=== PATIENT | male | born 1960 | race African-American/Black ===

== ENCOUNTER 2017-05-27 10:56 | Inpatient (IN) | payer OTHER ==
[2017-05-27 11:48] VITALS: BMI 25.2
--- NOTE | 2017-05-27 14:20 | HP ---
Admission ROS [facility] - [facility] Chief Complaint: I am here for rehab after detox at [facility]. Allergies/Adverse Reactions: Allergies Allergy/AdvReac Type Severity Reaction Status Date / Time No Known Allergies Allergy Verified 05/27/17 13:53 History of Present Illness: pt is a 57 yr old male with a history of alcohol dependence seeking rehab after detox at [facility] detox for 4 days. Exam Limitations: No Limitations - Ebola screening Have you traveled outside of the country in the last 21 days: No Have you had contact with anyone from an Ebola affected area: No Have you been sick,other than usual withdrawal symptoms: No Do you have a fever: No - Review of Systems Constitutional: No Symptoms Reported EENT: reports: No Symptoms Reported Respiratory: reports: Cough Cardiac: reports: No Symptoms Reported GI: reports: No Symptoms Reported : reports: Frequency Musculoskeletal: reports: Back Pain Integumentary: reports: No Symptoms Reported Neuro: reports: Headache, Tremors Endocrine: reports: Excessive Sweating, Flushing, Intolerance to Cold, Intolerance to Heat Hematology: reports: No Symptoms Reported Psychiatric: reports: Judgement Intact, Mood/Affect Appropiate, Orientated x3 Other Systems: Reviewed and Negative Patient History - Patient Medical History Hx Anemia: No Hx Asthma: No Hx Chronic Obstructive Pulmonary Disease (COPD): No Hx Cancer: No Hx Cardiac Disorders: No Hx Congestive Heart Failure: No Hx Hypertension: No Hx Hypercholesterolemia: No Hx Pacemaker: No HX Cerebrovascular Accident: No Hx Seizures: No Hx Dementia: No Hx Diabetes: No Hx Gastrointestinal Disorders: No Hx Liver Disease: No Hx Genitourinary Disorders: No Hx Sexually Transmitted Disorders: No Hx Renal Disease (ESRD): No Hx Thyroid Disease: No Hx Human Immunodeficiency Virus (HIV): No (negative) Hx Hepatitis C: No Hx Depression: Yes Hx Suicide Attempt: No (denies) Hx Bipolar Disorder: No Hx Schizophrenia: No - Patient Surgical History Past Surgical History: Yes Hx Neurologic Surgery: No Hx Cataract Extraction: No Hx Cardiac Surgery: No Hx Lung Surgery: No Hx Breast Surgery: No Hx Breast Biopsy: No Hx Abdominal Surgery: No Hx Appendectomy: No Hx Cholecystectomy: No Hx Genitourinary Surgery: No Hx Section: No Hx Orthopedic Surgery: No Other Surgical History: removal of benign cyst right upper back in 1999 Anesthesia Reaction: No - PPD History Previous Implant?: Yes Documented Results: Positive w/o proof Implanted On Prior [facility] Admission?: No PPD to be Administered?: No - Reproductive History Patient is a Female of Child Bearing Age (11 -55 yrs old): No - Smoking Cessation Smoking history: Current every day smoker Have you smoked in the past 12 months: Yes Aproximately how many cigarettes per day: 20 Hx Chewing Tobacco Use: No Initiated information on smoking cessation: Yes 'Breaking Loose' booklet given: 05/27/17 - Substance & Tx. History Hx Alcohol Use: Yes Hx Substance Use: Yes Substance Use Type: Alcohol, Cocaine Hx Substance Use Treatment: Yes (last detox 05/2017 at [facility]) - Substances Abused Crack Route: Smoking Frequency: Daily Amount used: $100 Age of first use: 22 Date of Last Use: 05/23/17 Alcohol-vodka/beer Route: Oral Frequency: Daily Amount used: 4-5 pts./1-6 pk. Age of first use: 13 Date of Last Use: 05/23/17 Family Disease History - Family Disease History Family Disease History: Diabetes: Grandparent, Mother, Other: Father () Admission Physical Exam [facility] - Vital Signs Vital Signs: Vital Signs - 24 hr 05/27/17 11:46 Temperature 96.6 F L Pulse Rate 84 Respiratory 19 Rate Blood Pressure 136/73 - Physical General Appearance: Yes: Appropriately Dressed, Mild Distress, Anxious HEENTM: Yes: Hearing grossly Normal, Normal Voice Respiratory: Yes: Chest Non-Tender, Lungs Clear, Normal Breath Sounds, No Respiratory Distress Neck: Yes: No masses,lesions,Nodules Breast: Yes: Within Normal Limits, Axillae without masses Cardiology: Yes: Regular Rhythm, Regular Rate, S1, S2 Abdominal: Yes: Normal Bowel Sounds, Non Tender, Soft Genitourinary: Yes: Within Normal Limits Back: Yes: Normal Inspection Musculoskeletal: Yes: full range of Motion Extremities: Yes: Normal Capillary Refill, Normal Inspection, Tremors Neurological: Yes: Fully Oriented, Alert, Normal Response Integumentary: Yes: Normal Color Lymphatic: Yes: Within Normal Limits - Diagnostic (1) Alcohol dependence in early, early partial, sustained full, or sustained partial remission Current Visit: Yes Status: Chronic (2) Nicotine dependence Current Visit: Yes Status: Chronic Qualifiers: Nicotine product type: cigarettes Substance use status: uncomplicated Qualified Code(s): F17.210 - Nicotine dependence, cigarettes, uncomplicated Cleared for Admission [facility] - Detox or Rehab [facility] Level of Care: Medically Managed Claeared for Rehab Admission: Yes [facility] Breath Alcohol Content Breath Alcohol Content: 0 Urine Drug Screen - Results Drug Screen Negative: No Urine Drug Screen Results: JÚNIOR-Cocaine, BZO-Benzodiazepines, TCA-Tricyclic Antidepress Inpatient Rehab Admission - Initial Determination Free of communicable disease: Yes - Rehab Admission Criteria Comorbidities: Yes Patient is meeting Inpatient Rehab admission criteria:: Yes
[2017-05-27] MEDS ORDERED: ACETAMINOPHEN 325 MG TABLET (FP) PO PRN (14:31)
[2017-05-27] MEDS ORDERED: MENTHOL/PHENOL 1 EACH UD MM PRN (14:31)
[2017-05-27] MEDS ORDERED: NICOTINE POLACRILEX 4 MG GUM BC PRN (14:31)
[2017-05-27] MEDS ORDERED: P-EPHED 60MG/TRIPROLIDI 2.5MG TABLET PO PRN (14:31)
[2017-05-27] MEDS ORDERED: IBUPROFEN 400 MG TABLET (FP) PO PRN (14:31)
[2017-05-27] MEDS ORDERED: LOPERAMIDE HCL 2 MG CAPSULE PO PRN (14:31)
[2017-05-27] MEDS ORDERED: MAGNESIUM HYDROX 2400MG/30ML ORAL SUSPENSION 30 ML CUP PO PRN (14:31)
[2017-05-27] MEDS ORDERED: MAGNESIUM CITRATE 300 ML BOTTLE PO PRN (14:31)
--- NOTE | 2017-05-27 15:33 | HP ---
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 Medical History: removal of benign cyst right upper back in 1999, smokes cigarettes 1 PPD. Psychiatric History: patient reports no history of psychiatric treatment, however reports has been feeling very depressed and anxious, "short of temper", low energy and lost interest. Physical/Sexual Abuse/Trauma History: Denies history of sexual, physical and verbla abuse, no h/o service. Additional Comment: longest period of abstinence 8.5 years "was incarcerated". Vital Signs: Vital Signs - 24 hr 05/27/17 11:46 Temperature 96.6 F L Pulse Rate 84 Respiratory 19 Rate Blood Pressure 136/73 Allergies/Adverse Reactions: Allergies Allergy/AdvReac Type Severity Reaction Status Date / Time No Known Allergies Allergy Verified 05/27/17 13:53 Date of last physical exam: 05/27/17 Concur with the findings of this exam: Yes - Substance Abuse/Tx History Hx Alcohol Use: Yes Hx Substance Use: Yes Substance Use Type: Alcohol (vodka 4-5 pints, beer 1-6 ), Cocaine ($100 daily ) Hx Substance Use Treatment: Yes ([facility] program) Mental Status Exam - Mental Status Exam Alert and Oriented to: Time, Place, Person Cognitive Function: Grossly Intact Patient Appearance: Well Groomed Mood: Depressed, Anxious Affect: Appropriate, Mood Congruent Patient Behavior: Appropriate, Cooperative Speech Pattern: Clear, Appropriate Voice Loudness: Normal Thought Process: Intact Thought Disorder: Not Present (reports under the drugs sometimes feels paranoid) Hallucinations: Denies Suicidal Ideation: Denies Homicidal Ideation: Denies Insight/Judgement: Fair Sleep: Fair Appetite: Fair Muscle strength/Tone: Normal Gait/Station: Normal Psychiatric Findings - Problem List ([place] 1, 2,3) (1) Alcohol dependence Current Visit: Yes Status: Acute (2) Cocaine dependence Current Visit: Yes Status: Acute (3) Substance induced mood disorder Current Visit: Yes Status: Acute (4) Nicotine dependence Current Visit: Yes Status: Chronic Qualifiers: Nicotine product type: cigarettes Substance use status: uncomplicated Qualified Code(s): F17.210 - Nicotine dependence, cigarettes, uncomplicated - Initial Treatment Plan Initial Treatment Plan: Psychoeducation regarding Lexapro(side-effects/benefits) , patient agreed to start treatment , will add Lexapro 10 mg po daily, monitor progress as needed.
[2017-05-27 19:03] LABS: URINE APPEARANCE CLEAR; URINE BILIRUBIN NEGATIVE (NEGATIVE); URINE BLOOD NEGATIVE (NEGATIVE); URINE COLOR LTYELLOW; URINE GLUCOSE (UA) NEGATIVE (NEGATIVE); URINE KETONE NEGATIVE (NEGATIVE); URINE LEUK ESTERASE NEGATIVE (NEGATIVE); URINE NITRITE NEGATIVE (NEGATIVE); URINE PROTEIN NEGATIVE (NEGATIVE); URINE UROBILINOGEN NEGATIVE mg/dL (0.2-1.0)
[2017-05-27] MEDS: THIAMINE HCL 100 MG TABLET (FP) PO SCH (21:27)
[2017-05-27] MEDS: TOLNAFTATE 1% CREAM 15 GM TUBE TP SCH (21:27)
[2017-05-28] MEDS: MAG HYDROX/AL HYDROX/SIMETH 30 ML UNIT-DOSE CUP PO PRN (06:45)
[2017-05-28 10:13] LABS: HEMATOCRIT 43.1 % (35.4-49); HEMOGLOBIN 13.5 GM/dL (11.7-16.9); MCHC 31.4 g/dl (32.0-35.9); MEAN CELL VOLUME 89.2 fl (80-96); PLATELET COUNT 187 K/MM3 (134-434); RBC 4.83 M/mm3 (4.00-5.60); RDW 13.4 % (11.9-15.9); WHITE BLOOD COUNT 5.5 K/mm3 (4.0-10.0)
[2017-05-28 10:24] LABS: ALBUMIN 3.2 g/dl (3.4-5.0); ALK PHOS 121 U/L (45-117); ANION GAP 9 (8-16); BLOOD UREA NITROGEN 14 mg/dL (7-18); CALCIUM 8.2 mg/dL (8.5-10.1); CHLORIDE 109 mmol/L (98-107); CO2 25 mmol/L (21-32); GLUCOSE,RANDOM 93 mg/dL (74-106); POTASSIUM 4.1 mmol/L (3.5-5.1); SGOT/AST 70 U/L (15-37); SGPT/ALT 75 U/L (12-78); SODIUM 143 mmol/L (136-145)
[2017-05-28] MEDS: TOLNAFTATE 1% CREAM 15 GM TUBE TP SCH ×2 (10:31→21:25)
[2017-05-28] MEDS: PRENATAL VITAMINS W/ FOLIC ACID TABLET (FP) PO SCH (10:31)
[2017-05-28] MEDS: hydrOXYzine PAMOATE 50 MG CAPSULE (FP) PO PRN ×2 (10:31→21:26)
[2017-05-28 10:35] LABS: BILIRUBIN,TOTAL < 0.1 mg/dL (0.2-1.0)
[2017-05-28] MEDS: ESCITALOPRAM OXALATE 10 MG TABLET (FP) PO SCH (14:37)
[2017-05-28] MEDS: THIAMINE HCL 100 MG TABLET (FP) PO SCH (21:24)
[2017-05-29] MEDS: ESCITALOPRAM OXALATE 10 MG TABLET (FP) PO SCH (09:56)
[2017-05-29] MEDS: PRENATAL VITAMINS W/ FOLIC ACID TABLET (FP) PO SCH (09:56)
[2017-05-29] MEDS: TOLNAFTATE 1% CREAM 15 GM TUBE TP SCH ×2 (09:56→21:27)
--- NOTE | 2017-05-29 17:16 | EKG ---
Test Reason : Blood Pressure : / mmHG Vent. Rate : 093 BPM Atrial Rate : 093 BPM P-R Int : 140 ms QRS Dur : 094 ms QT Int : 350 ms P-R-T Axes : 070 079 061 degrees QTc Int : 435 ms NORMAL SINUS RHYTHM MINIMAL VOLTAGE CRITERIA FOR LVH, MAY BE NORMAL VARIANT BORDERLINE ECG NO PREVIOUS ECGS AVAILABLE Confirmed by MG LA MD ([id number]) on 05/29/2017 5:15:53 PM Referred By: Confirmed By:MG LA MD
[2017-05-29] MEDS: THIAMINE HCL 100 MG TABLET (FP) PO SCH (21:27)
[2017-05-29] MEDS: hydrOXYzine PAMOATE 50 MG CAPSULE (FP) PO PRN (21:27)
[2017-05-30] MEDS: MAG HYDROX/AL HYDROX/SIMETH 30 ML UNIT-DOSE CUP PO PRN (03:54)
[2017-05-30] MEDS: PRENATAL VITAMINS W/ FOLIC ACID TABLET (FP) PO SCH (10:23)
[2017-05-30] MEDS: TOLNAFTATE 1% CREAM 15 GM TUBE TP SCH ×2 (10:23→21:35)
[2017-05-30] MEDS: ESCITALOPRAM OXALATE 10 MG TABLET (FP) PO SCH (10:23)
[2017-05-30] MEDS: THIAMINE HCL 100 MG TABLET (FP) PO SCH (21:33)
[2017-05-30] MEDS: hydrOXYzine PAMOATE 50 MG CAPSULE (FP) PO PRN (21:34)
[2017-05-31] MEDS: PRENATAL VITAMINS W/ FOLIC ACID TABLET (FP) PO SCH (10:12)
[2017-05-31] MEDS: TOLNAFTATE 1% CREAM 15 GM TUBE TP SCH ×2 (10:12→21:41)
[2017-05-31] MEDS: ESCITALOPRAM OXALATE 10 MG TABLET (FP) PO SCH (10:12)
[2017-05-31] MEDS: THIAMINE HCL 100 MG TABLET (FP) PO SCH (21:41)
[2017-05-31] MEDS: hydrOXYzine PAMOATE 50 MG CAPSULE (FP) PO PRN (21:41)
[2017-06-01] MEDS: TOLNAFTATE 1% CREAM 15 GM TUBE TP SCH ×2 (10:17→21:31)
[2017-06-01] MEDS: PRENATAL VITAMINS W/ FOLIC ACID TABLET (FP) PO SCH (10:17)
[2017-06-01] MEDS: ESCITALOPRAM OXALATE 10 MG TABLET (FP) PO SCH (10:17)
[2017-06-01] MEDS: hydrOXYzine PAMOATE 50 MG CAPSULE (FP) PO PRN (21:31)
[2017-06-01] MEDS: THIAMINE HCL 100 MG TABLET (FP) PO SCH (21:31)
[2017-06-02] MEDS: TOLNAFTATE 1% CREAM 15 GM TUBE TP SCH ×2 (10:59→21:30)
[2017-06-02] MEDS: PRENATAL VITAMINS W/ FOLIC ACID TABLET (FP) PO SCH (10:59)
[2017-06-02] MEDS: ESCITALOPRAM OXALATE 10 MG TABLET (FP) PO SCH (10:59)
[2017-06-02] MEDS: hydrOXYzine PAMOATE 50 MG CAPSULE (FP) PO PRN (21:29)
[2017-06-02] MEDS: THIAMINE HCL 100 MG TABLET (FP) PO SCH (21:30)
[2017-06-02] MEDS: guaiFENesin/D-METHORPHAN HB 10 ML UNIT-DOSE CUPS PO PRN (21:31)
[2017-06-03] MEDS: PRENATAL VITAMINS W/ FOLIC ACID TABLET (FP) PO SCH (10:05)
[2017-06-03] MEDS: ESCITALOPRAM OXALATE 10 MG TABLET (FP) PO SCH (10:05)
[2017-06-03] MEDS: TOLNAFTATE 1% CREAM 15 GM TUBE TP SCH ×2 (10:06→21:24)
[2017-06-03] MEDS: guaiFENesin/D-METHORPHAN HB 10 ML UNIT-DOSE CUPS PO PRN ×2 (14:22→21:25)
[2017-06-03] MEDS: hydrOXYzine PAMOATE 50 MG CAPSULE (FP) PO PRN (21:24)
[2017-06-03] MEDS: THIAMINE HCL 100 MG TABLET (FP) PO SCH (21:24)
[2017-06-04] MEDS ORDERED: COLLOIDAL OATMEAL 1 BAR EACH TP PRN (07:07)
[2017-06-04] MEDS: PRENATAL VITAMINS W/ FOLIC ACID TABLET (FP) PO SCH (10:04)
[2017-06-04] MEDS: ESCITALOPRAM OXALATE 10 MG TABLET (FP) PO SCH (10:04)
[2017-06-04] MEDS: TOLNAFTATE 1% CREAM 15 GM TUBE TP SCH ×2 (10:05→21:28)
[2017-06-04] MEDS: guaiFENesin/D-METHORPHAN HB 10 ML UNIT-DOSE CUPS PO PRN (10:06)
[2017-06-04] MEDS: THIAMINE HCL 100 MG TABLET (FP) PO SCH (21:27)
[2017-06-04] MEDS: hydrOXYzine PAMOATE 50 MG CAPSULE (FP) PO PRN (21:27)
[2017-06-05] MEDS: PRENATAL VITAMINS W/ FOLIC ACID TABLET (FP) PO SCH (09:42)
[2017-06-05] MEDS: ESCITALOPRAM OXALATE 10 MG TABLET (FP) PO SCH (09:42)
[2017-06-05] MEDS: TOLNAFTATE 1% CREAM 15 GM TUBE TP SCH ×2 (09:43→21:36)
[2017-06-05] MEDS: hydrOXYzine PAMOATE 50 MG CAPSULE (FP) PO PRN (21:35)
[2017-06-05] MEDS: THIAMINE HCL 100 MG TABLET (FP) PO SCH (21:35)
[2017-06-06] MEDS: ESCITALOPRAM OXALATE 10 MG TABLET (FP) PO SCH (09:52)
[2017-06-06] MEDS: PRENATAL VITAMINS W/ FOLIC ACID TABLET (FP) PO SCH (09:52)
[2017-06-06] MEDS: TOLNAFTATE 1% CREAM 15 GM TUBE TP SCH ×2 (09:53→21:27)
[2017-06-06] MEDS: hydrOXYzine PAMOATE 50 MG CAPSULE (FP) PO PRN (21:26)
[2017-06-06] MEDS: THIAMINE HCL 100 MG TABLET (FP) PO SCH (21:26)
[2017-06-07] MEDS: PRENATAL VITAMINS W/ FOLIC ACID TABLET (FP) PO SCH (10:05)
[2017-06-07] MEDS: ESCITALOPRAM OXALATE 10 MG TABLET (FP) PO SCH (10:05)
[2017-06-07] MEDS: TOLNAFTATE 1% CREAM 15 GM TUBE TP SCH ×2 (10:06→21:41)
--- NOTE | 2017-06-07 10:40 | PN ---
S Progress Note (SOAP) Subjective: Patient c/o facial rash and bleeding gum. As per patient, the facial rash almost gone after using aveeno soap but his gum started bleeding whenever he brushes his teeth. He denies using hard toothbrush. Last dental exam 11/2 year ago. Objective: 06/07/17 10:36 Last Vital Signs Temp Pulse Resp BP Pulse Ox 98.1 F 74 18 122/85 06/07/17 06:46 06/07/17 06:46 06/07/17 06:46 06/07/17 06:46 PE: Mouth: no bleeding gum noted Laboratory Tests 05/27/17 05/28/17 05/28/17 15:00 07:50 07:50 WBC 5.5 RBC 4.83 Hgb 13.5 Hct 43.1 MCV 89.2 MCH 28.0 MCHC 31.4 L RDW 13.4 Plt Count 187 MPV 8.0 Sodium Potassium Chloride Carbon Dioxide Anion Gap BUN Creatinine Creat Clearance w eGFR Random Glucose Calcium Total Bilirubin AST ALT Alkaline Phosphatase Total Protein Albumin Urine Color Ltyellow Urine Appearance Clear Urine pH 7.0 Ur Specific [place] 1.012 Urine Protein Negative Urine Glucose (UA) Negative Urine Ketones Negative Urine Blood Negative Urine Nitrite Negative Urine Bilirubin Negative Urine Urobilinogen Negative Ur Leukocyte Esterase Negative RPR Titer HIV 1&2 Antibody Screen Negative HIV P24 Antigen Negative 05/28/17 05/28/17 07:50 07:50 WBC RBC Hgb Hct MCV MCH MCHC RDW Plt Count MPV Sodium 143 Potassium 4.1 Chloride 109 H Carbon Dioxide 25 Anion Gap 9 BUN 14 Creatinine 1.0 Creat Clearance w eGFR > 60 Random Glucose 93 Calcium 8.2 L Total Bilirubin < 0.1 L AST 70 H ALT 75 Alkaline Phosphatase 121 H Total Protein 6.0 L Albumin 3.2 L Urine Color Urine Appearance Urine pH Ur Specific [place] Urine Protein Urine Glucose (UA) Urine Ketones Urine Blood Urine Nitrite Urine Bilirubin Urine Urobilinogen Ur Leukocyte Esterase RPR Titer Nonreactive HIV 1&2 Antibody Screen HIV P24 Antigen Labs noted Assessment: 06/07/17 10:37 Patient c/o bleeding gum Plan: Bleeding gum: peridex rinse, follow up with your dentist post discharge
[2017-06-07] MEDS: CHLORHEXIDINE GLUCONATE 0.12% 15ML CUP MM SCH ×2 (10:43→21:41)
[2017-06-07] MEDS: hydrOXYzine PAMOATE 50 MG CAPSULE (FP) PO PRN (21:41)
[2017-06-07] MEDS: THIAMINE HCL 100 MG TABLET (FP) PO SCH (21:41)
[2017-06-08] MEDS: PRENATAL VITAMINS W/ FOLIC ACID TABLET (FP) PO SCH (09:43)
[2017-06-08] MEDS: TOLNAFTATE 1% CREAM 15 GM TUBE TP SCH ×2 (09:44→21:34)
[2017-06-08] MEDS: ESCITALOPRAM OXALATE 10 MG TABLET (FP) PO SCH (09:44)
[2017-06-08] MEDS: CHLORHEXIDINE GLUCONATE 0.12% 15ML CUP MM SCH ×2 (09:45→21:36)
--- NOTE | 2017-06-08 13:34 | EKG ---
Test Reason : Blood Pressure : / mmHG Vent. Rate : 095 BPM Atrial Rate : 095 BPM P-R Int : 142 ms QRS Dur : 100 ms QT Int : 336 ms P-R-T Axes : 071 079 062 degrees QTc Int : 422 ms NORMAL SINUS RHYTHM VOLTAGE CRITERIA FOR LEFT VENTRICULAR HYPERTROPHY ABNORMAL ECG WHEN COMPARED WITH ECG OF 27-MAY-2017 16:55, NO SIGNIFICANT CHANGE WAS FOUND Confirmed by MG LA MD ([id number]) on 06/08/2017 1:33:37 PM Referred By: Confirmed By:MG LA MD
[2017-06-08] MEDS: THIAMINE HCL 100 MG TABLET (FP) PO SCH (21:33)
[2017-06-08] MEDS: hydrOXYzine PAMOATE 50 MG CAPSULE (FP) PO PRN (21:33)
[2017-06-09] MEDS: ESCITALOPRAM OXALATE 10 MG TABLET (FP) PO SCH (09:50)
[2017-06-09] MEDS: TOLNAFTATE 1% CREAM 15 GM TUBE TP SCH ×2 (09:50→22:36)
[2017-06-09] MEDS: PRENATAL VITAMINS W/ FOLIC ACID TABLET (FP) PO SCH (09:50)
[2017-06-09] MEDS: CHLORHEXIDINE GLUCONATE 0.12% 15ML CUP MM SCH ×2 (09:51→22:36)
[2017-06-09] MEDS: THIAMINE HCL 100 MG TABLET (FP) PO SCH (21:41)
[2017-06-10 07:12] VITALS: BP 138/86; PULSE 76; TEMP 98.2
[2017-06-10] MEDS: PRENATAL VITAMINS W/ FOLIC ACID TABLET (FP) PO SCH (09:50)
[2017-06-10] MEDS: ESCITALOPRAM OXALATE 10 MG TABLET (FP) PO SCH (09:50)
[2017-06-10] MEDS: CHLORHEXIDINE GLUCONATE 0.12% 15ML CUP MM SCH (09:51)
[2017-06-10] MEDS: TOLNAFTATE 1% CREAM 15 GM TUBE TP SCH (09:51)
--- NOTE | 2017-06-10 10:16 | PN ---
Psychiatric Progress Note Vital Signs: Vital Signs Period Temp Pulse Resp BP Sys/Jara Pulse Ox Last 24 Hr 98.2 F 76 17-18 138/86 Date of Session: 06/10/17 Chief Complaint:: discharge visit HPI: Patient has addressed alcohol, cocaine, nicotine dependence comorbid substance induced mood disorder. ROS: WNL Current Medications: Active Medications Generic Name Dose Route Start Last Admin Trade Name Freq PRN Reason Stop Dose Admin Acetaminophen 650 mg 05/27/17 14:31 Tylenol - PO Q4H PRN PAIN Al Hydroxide/Mg Hydroxide 30 ml 05/27/17 14:31 05/30/17 03:54 Mylanta Oral Suspension - PO 30 ml Q6H PRN Administration DYSPEPSIA Chlorhexidine Gluconate 15 ml 06/07/17 10:00 06/10/17 09:51 Peridex - MM Not Given BID JONG Colloidal Oatmeal 1 applic 06/04/17 07:07 06/04/17 10:04 Aveeno Soap - TP 1 applic DAILY PRN Administration HYGEINE Escitalopram Oxalate 10 mg 05/28/17 14:15 06/10/17 09:50 Lexapro - PO 10 mg DAILY JONG Administration Eucalyptus/Menthol/Phenol/Sorbitol 1 each 05/27/17 14:31 Cepastat Lozenge - MM Q4H PRN SORE THROAT Guaifenesin 10 ml 05/27/17 14:31 06/04/17 10:06 Robitussin Dm - PO 10 ml Q6H PRN Administration COUGH Hydroxyzine Pamoate 50 mg 05/27/17 14:31 06/08/17 21:33 Vistaril - PO 50 mg Q4H PRN Administration AGITATION Ibuprofen 400 mg 05/27/17 14:31 Motrin - PO Q6H PRN SEVERE PAIN Loperamide HCl 4 mg 05/27/17 14:31 Imodium - PO Q6H PRN DIARRHEA Magnesium Citrate 300 ml 05/27/17 14:31 Citroma - PO Q48H PRN CONSTIPATION Magnesium Hydroxide 30 ml 05/27/17 14:31 Milk Of Magnesia - PO DAILY PRN CONSTIPATION Nicotine Polacrilex 4 mg 05/27/17 14:31 Nicorette Gum - BC Q2H PRN NICOTINE REPLACEMENT RX Multivit/Folic Acid/Iron 1 tab 05/28/17 10:00 06/10/17 09:50 Vitamins ([facility]) - PO 1 tab DAILY JONG Administration Pseudoephedrine/Triprolidine 1 combo 05/27/17 14:31 Actifed - PO TID PRN NASAL CONGESTION Thiamine HCl 100 mg 05/27/17 22:00 06/09/17 21:41 Vitamin B1 - PO 100 mg HS JONG Administration Tolnaftate 1 applic 05/27/17 22:00 06/10/17 09:51 Tinactin 1% Cream - TP Not Given BID JONG Current Side Effect: No Lab tests ordered: No Lab tests reviewed: Yes Provider note:: Patient has completed today his treatment and met his goals, will contineu to address his issues at [facility], [facility] and [facility] treatment program.He focused on importnace of changing attitudes and utilize supports available to prevent relapses. Patient reports feeling better since started Lexapro, medication well tolerated, scripts provided for 30 days, Total face to face time:: 25 Mental Status Exam - Mental Status Exam Alert and Oriented to: Time, Place, Person Cognitive Function: Good Patient Appearance: Well Groomed Mood: Hopeful Affect: Appropriate, Mood Congruent Patient Behavior: Appropriate, Cooperative Speech Pattern: Clear, Appropriate Voice Loudness: Normal Thought Process: Intact, Goal Oriented Thought Disorder: Not Present Hallucinations: Denies Suicidal Ideation: Denies Homicidal Ideation: Denies Insight/Judgement: Fair Sleep: Fair Appetite: Fair Muscle strength/Tone: Normal Gait/Station: Normal Psychiatric Treatment Plan - Problem List (1) Alcohol dependence Current Visit: Yes (2) Cocaine dependence Current Visit: Yes (3) Substance induced mood disorder Current Visit: Yes (4) Nicotine dependence Current Visit: Yes Qualifiers: Nicotine product type: cigarettes Substance use status: uncomplicated Qualified Code(s): F17.210 - Nicotine dependence, cigarettes, uncomplicated
== END 2017-06-10 10:40 | disposition home or self-care (01) | DRG 772 ==
LOC: YASAS 10:56 → Y5N 14:20
PROVIDERS: ADMIT Psychiatry & Neurology Psychiatry; ATTEND Psychiatry & Neurology Psychiatry
PROC: HZ42ZZZ Group Counseling for Substance Abuse Treatment, Cognitive-Behavioral (ICD-10-PCS; principal; 2017-05-27)
DX: F10.21 Alcohol dependence, in remission (principal); F14.20 Cocaine dependence, uncomplicated; F17.210 Nicotine dependence, cigarettes, uncomplicated; F19.24 Other psychoactive substance dependence with psychoactive substance-induced mood disorder; Z59.0 Homelessness
CPT/HCPCS: 36415; 71020-TC; 80053; 81003; 85027; 86593; 87389; 93005; 93010

== ENCOUNTER 2020-09-04 17:30 | Inpatient (IN) | payer OTHER ==
[2020-09-04 18:44] VITALS: BMI 25.1
[2020-09-04] MEDS ORDERED: MAG HYDROX/AL HYDROX/SIMETH 30 ML UNIT-DOSE CUP PO PRN (18:44)
[2020-09-04] MEDS ORDERED: NICOTINE POLACRILEX 2 MG GUM BUC PRN (18:44)
[2020-09-04] MEDS ORDERED: METHOCARBAMOL 500 MG TABLET PO PRN (18:44)
[2020-09-04] MEDS ORDERED: MAGNESIUM CITRATE 300 ML BOTTLE PO PRN (18:44)
[2020-09-04] MEDS ORDERED: MENTHOL/PHENOL 1 EACH UD MM PRN (18:44)
[2020-09-04] MEDS ORDERED: MAGNESIUM HYDROX 2400MG/30ML ORAL SUSPENSION 30 ML CUP PO PRN (18:44)
[2020-09-04] MEDS ORDERED: IBUPROFEN 400 MG TABLET (FP) PO PRN (18:44)
[2020-09-04] MEDS ORDERED: ONDANSETRON *ODT* 4 MG TABLET SL PRN (18:44)
[2020-09-04] MEDS ORDERED: chlordiazePOXIDE HCL 25 MG CAPSULE PO PRN (18:44)
[2020-09-04] MEDS ORDERED: ACETAMINOPHEN 325 MG TABLET (FP) PO PRN ×2 (18:44)
[2020-09-04] MEDS ORDERED: BISMUTH SUBSALICYLATE 524 MG/30 ML UD PO PRN (18:44)
[2020-09-04] MEDS: chlordiazePOXIDE HCL 25 MG CAPSULE PO SCH ×2 (19:55→22:25)
[2020-09-04] MEDS: PRENATAL VITAMINS W/ FOLIC ACID TABLET (FP) PO SCH (19:57)
[2020-09-04] MEDS: hydrOXYzine PAMOATE 25 MG CAPSULE (FP) PO SCH (22:24)
[2020-09-04] MEDS: THIAMINE HCL 100 MG TABLET (FP) PO SCH (22:24)
[2020-09-04] MEDS: MELATONIN 5 MG TABLETS PO SCH (22:24)
[2020-09-05] MEDS: hydrOXYzine PAMOATE 25 MG CAPSULE (FP) PO SCH ×5 (06:19→22:19)
[2020-09-05] MEDS: chlordiazePOXIDE HCL 25 MG CAPSULE PO SCH ×4 (06:20→22:19)
[2020-09-05] MEDS: PRENATAL VITAMINS W/ FOLIC ACID TABLET (FP) PO SCH (10:31)
[2020-09-05 10:41] LABS: HEMATOCRIT 40.4 % (35.4-49); HEMOGLOBIN 13.5 GM/dL (11.7-16.9); MCH 29.3 pg (25.7-33.7); MCHC 33.5 g/dl (32.0-35.9); MEAN CELL VOLUME 87.4 fl (80-96); MEAN PLT VOLUME 8.3 fl (7.5-11.1); PLATELET COUNT 198 K/MM3 (134-434); RBC 4.62 M/mm3 (4.00-5.60); RDW 13.7 % (11.9-15.9); WHITE BLOOD COUNT 4.5 K/mm3 (4.0-10.0)
[2020-09-05 10:42] LABS: POTASSIUM 3.8 mmol/L (3.5-5.1)
[2020-09-05 10:54] LABS: TOT PROT 5.5 g/dl (6.4-8.2)
[2020-09-05 10:56] LABS: ALBUMIN 2.9 g/dl (3.4-5.0); BILIRUBIN,TOTAL 0.2 mg/dL (0.2-1); BLOOD UREA NITROGEN 12.9 mg/dL (7-18); CALCIUM 8.7 mg/dL (8.5-10.1)
[2020-09-05 11:50] LABS: HIV INTERPRETATION NEGATIVE (NEGATIVE)
[2020-09-05] MEDS: MELATONIN 5 MG TABLETS PO SCH (22:19)
[2020-09-05] MEDS: THIAMINE HCL 100 MG TABLET (FP) PO SCH (22:19)
[2020-09-06] MEDS: chlordiazePOXIDE HCL 25 MG CAPSULE PO SCH ×4 (08:02→22:29)
[2020-09-06] MEDS: hydrOXYzine PAMOATE 25 MG CAPSULE (FP) PO SCH ×5 (08:03→22:27)
[2020-09-06] MEDS: PRENATAL VITAMINS W/ FOLIC ACID TABLET (FP) PO SCH (10:26)
[2020-09-06] MEDS: THIAMINE HCL 100 MG TABLET (FP) PO SCH (22:27)
[2020-09-06] MEDS: MELATONIN 5 MG TABLETS PO SCH (22:27)
[2020-09-07] MEDS ORDERED: chlordiazePOXIDE HCL 10 MG CAPSULE PO PRN
[2020-09-07] MEDS: hydrOXYzine PAMOATE 25 MG CAPSULE (FP) PO SCH ×5 (06:30→22:15)
[2020-09-07] MEDS: chlordiazePOXIDE HCL 10 MG CAPSULE PO SCH ×4 (06:34→22:16)
[2020-09-07 10:09] LABS: SARS-CoV-2 NAA Not Detected (Not Detected)
[2020-09-07] MEDS: PRENATAL VITAMINS W/ FOLIC ACID TABLET (FP) PO SCH (10:25)
[2020-09-07] MEDS: MELATONIN 5 MG TABLETS PO SCH (22:15)
[2020-09-07] MEDS: THIAMINE HCL 100 MG TABLET (FP) PO SCH (22:15)
[2020-09-08] MEDS: hydrOXYzine PAMOATE 25 MG CAPSULE (FP) PO SCH ×5 (05:54→21:44)
[2020-09-08] MEDS: FLUTICASONE PROP 0.05% 16 GM NASAL SPRAY NS SCH ×2 (05:54→10:25)
[2020-09-08] MEDS: chlordiazePOXIDE HCL 10 MG CAPSULE PO SCH ×2 (05:54→17:40)
[2020-09-08] MEDS: PRENATAL VITAMINS W/ FOLIC ACID TABLET (FP) PO SCH (10:25)
[2020-09-08] MEDS: COLLOIDAL OATMEAL 1 BAR EACH TP PRN (15:20)
[2020-09-08] MEDS: TOLNAFTATE 1% CREAM 15 GM TUBE TP SCH ×2 (15:21→21:44)
[2020-09-08] MEDS: MELATONIN 5 MG TABLETS PO SCH (21:44)
[2020-09-08] MEDS: THIAMINE HCL 100 MG TABLET (FP) PO SCH (21:44)
[2020-09-09] MEDS ORDERED: chlordiazePOXIDE HCL 10 MG CAPSULE PO ONE (05:00)
[2020-09-09] MEDS: hydrOXYzine PAMOATE 25 MG CAPSULE (FP) PO SCH ×2 (05:13→10:02)
[2020-09-09 09:16] VITALS: BP 146/95; PULSE 84; TEMP 97.1
[2020-09-09] MEDS: COLLOIDAL OATMEAL 1 BAR EACH TP PRN (10:02)
[2020-09-09] MEDS: PRENATAL VITAMINS W/ FOLIC ACID TABLET (FP) PO SCH (10:02)
[2020-09-09] MEDS: TOLNAFTATE 1% CREAM 15 GM TUBE TP SCH (10:03)
[2020-09-09] MEDS: FLUTICASONE PROP 0.05% 16 GM NASAL SPRAY NS SCH (10:03)
== END 2020-09-09 10:35 | disposition other institution (70) | DRG 774 ==
LOC: YASAS 17:30 → Y3N 18:51
PROVIDERS: ADMIT Allergy & Immunology; ATTEND Allergy & Immunology
PROC: HZ2ZZZZ Detoxification Services for Substance Abuse Treatment (ICD-10-PCS; principal; 2020-09-04)
DX: F10.230 Alcohol dependence with withdrawal, uncomplicated (principal); F14.20 Cocaine dependence, uncomplicated; F17.210 Nicotine dependence, cigarettes, uncomplicated; F19.24 Other psychoactive substance dependence with psychoactive substance-induced mood disorder; F41.9 Anxiety disorder, unspecified; F32.9 Major depressive disorder, single episode, unspecified; R76.11 Nonspecific reaction to tuberculin skin test without active tuberculosis; Z56.0 Unemployment, unspecified; Z59.0 Homelessness
CPT/HCPCS: 36415; 71046-TC-FY; 80053; 85027; 86780; 87389; 93005; 93010; C9803; U0003; U0005

== ENCOUNTER 2021-04-27 15:45 | Inpatient (IN) | payer OTHER ==
[2021-04-27] MEDS ORDERED: MAGNESIUM CITRATE 300 ML BOTTLE PO PRN (17:46)
[2021-04-27] MEDS ORDERED: MENTHOL/PHENOL 1 EACH UD MM PRN (17:46)
[2021-04-27] MEDS ORDERED: BISMUTH SUBSALICYLATE 524 MG/30 ML PO PRN (17:46)
[2021-04-27] MEDS ORDERED: MAGNESIUM HYDROX 2400MG/30ML ORAL SUSPENSION 30 ML CUP PO PRN (17:46)
[2021-04-27] MEDS ORDERED: IBUPROFEN 400 MG TABLET (FP) PO PRN (17:46)
[2021-04-27] MEDS ORDERED: ONDANSETRON *ODT* 4 MG TABLET SL PRN (17:46)
[2021-04-27] MEDS ORDERED: NICOTINE 10 MG CARTRIDGE (INHALER) IH PRN (17:46)
[2021-04-27] MEDS ORDERED: ACETAMINOPHEN 325 MG TABLET (FP) PO PRN ×2 (17:46)
[2021-04-27 18:48] VITALS: BMI 29.2
[2021-04-27] MEDS: PRENATAL VITAMINS W/ FOLIC ACID TABLET (FP) PO SCH (20:22)
[2021-04-27] MEDS: hydrOXYzine PAMOATE 25 MG CAPSULE (FP) PO SCH ×2 (20:22→22:59)
[2021-04-27] MEDS: MELATONIN 5 MG TABLETS PO SCH (22:59)
[2021-04-27] MEDS: THIAMINE HCL 100 MG TABLET (FP) PO SCH (22:59)
[2021-04-28] MEDS: hydrOXYzine PAMOATE 25 MG CAPSULE (FP) PO SCH ×5 (07:00→22:18)
[2021-04-28] MEDS ORDERED: diazePAM 5 MG TABLET PO PRN (10:10)
[2021-04-28] MEDS: METHOCARBAMOL 500 MG TABLET PO PRN (11:15)
[2021-04-28] MEDS: PRENATAL VITAMINS W/ FOLIC ACID TABLET (FP) PO SCH (11:15)
[2021-04-28] MEDS: diazePAM 5 MG TABLET PO SCH ×3 (11:16→22:19)
[2021-04-28 14:41] LABS: HEMATOCRIT 39.6 % (35.4-49); HEMOGLOBIN 13.1 GM/dL (11.7-16.9); MCH 28.7 pg (25.7-33.7); MCHC 33.1 g/dl (32.0-35.9); MEAN CELL VOLUME 86.9 fl (80-96); PLATELET COUNT 200 10^3/uL (134-434); RBC 4.55 M/mm3 (4.00-5.60); RDW 13.7 % (11.9-15.9); WHITE BLOOD COUNT 5.4 K/mm3 (4.0-10.0)
[2021-04-28 18:10] LABS: ALBUMIN 2.8 g/dl (3.4-5.0); BILIRUBIN,TOTAL 0.3 mg/dL (0.2-1); BLOOD UREA NITROGEN 14.1 mg/dL (7-18); CALCIUM 8.1 mg/dL (8.5-10.1); CREATININE 1.1 mg/dL (0.55-1.3); TOT PROT 5.7 g/dl (6.4-8.2)
[2021-04-28] MEDS: MAG HYDROX/AL HYDROX/SIMETH 30 ML UNIT-DOSE CUP PO PRN (18:36)
[2021-04-28] MEDS: THIAMINE HCL 100 MG TABLET (FP) PO SCH (22:17)
[2021-04-28] MEDS: MELATONIN 5 MG TABLETS PO SCH (22:17)
[2021-04-29] MEDS ORDERED: diazePAM 5 MG TABLET PO PRN (00:01)
[2021-04-29] MEDS: hydrOXYzine PAMOATE 25 MG CAPSULE (FP) PO SCH ×5 (06:13→22:31)
[2021-04-29] MEDS: diazePAM 5 MG TABLET PO SCH ×3 (06:14→18:05)
[2021-04-29] MEDS: PRENATAL VITAMINS W/ FOLIC ACID TABLET (FP) PO SCH (10:53)
[2021-04-29] MEDS ORDERED: diazePAM 5 MG TABLET PO SCH (12:56)
[2021-04-29] MEDS: MAG HYDROX/AL HYDROX/SIMETH 30 ML UNIT-DOSE CUP PO PRN (19:02)
[2021-04-29] MEDS: MELATONIN 5 MG TABLETS PO SCH (22:31)
[2021-04-29] MEDS: THIAMINE HCL 100 MG TABLET (FP) PO SCH (22:31)
[2021-04-30] MEDS: diazePAM 5 MG TABLET PO SCH ×4 (00:01→22:46)
[2021-04-30] MEDS ORDERED: diazePAM 5 MG TABLET PO PRN (00:01)
[2021-04-30] MEDS: MAG HYDROX/AL HYDROX/SIMETH 30 ML UNIT-DOSE CUP PO PRN ×2 (01:19→19:44)
[2021-04-30] MEDS ORDERED: diazePAM 5 MG TABLET PO SCH (06:00)
[2021-04-30] MEDS: hydrOXYzine PAMOATE 25 MG CAPSULE (FP) PO SCH ×5 (06:08→22:46)
[2021-04-30] MEDS: PRENATAL VITAMINS W/ FOLIC ACID TABLET (FP) PO SCH (11:06)
[2021-04-30] MEDS: THIAMINE HCL 100 MG TABLET (FP) PO SCH (22:46)
[2021-04-30] MEDS: MELATONIN 5 MG TABLETS PO SCH (22:46)
[2021-05-01] MEDS: diazePAM 5 MG TABLET PO SCH ×2 (05:00→17:40)
[2021-05-01] MEDS: hydrOXYzine PAMOATE 25 MG CAPSULE (FP) PO SCH ×5 (05:00→22:22)
[2021-05-01] MEDS: PRENATAL VITAMINS W/ FOLIC ACID TABLET (FP) PO SCH (10:24)
[2021-05-01] MEDS: MAG HYDROX/AL HYDROX/SIMETH 30 ML UNIT-DOSE CUP PO PRN (21:50)
[2021-05-01] MEDS: THIAMINE HCL 100 MG TABLET (FP) PO SCH (22:21)
[2021-05-01] MEDS: MELATONIN 5 MG TABLETS PO SCH (22:22)
[2021-05-02] MEDS ORDERED: diazePAM 5 MG TABLET PO ONE ×2 (06:00)
[2021-05-02] MEDS: hydrOXYzine PAMOATE 25 MG CAPSULE (FP) PO SCH ×3 (06:21→13:05)
[2021-05-02] MEDS: METHOCARBAMOL 500 MG TABLET PO PRN (10:34)
[2021-05-02] MEDS: PRENATAL VITAMINS W/ FOLIC ACID TABLET (FP) PO SCH (10:34)
[2021-05-02 14:29] VITALS: BP 106/61; PULSE 81; TEMP 97.8
== END 2021-05-02 17:15 | disposition other institution (70) | DRG 774 ==
LOC: YASAS 15:45 → Y6N 19:27
PROVIDERS: ADMIT Allergy & Immunology; ATTEND Allergy & Immunology
PROC: HZ2ZZZZ Detoxification Services for Substance Abuse Treatment (ICD-10-PCS; principal; 2021-04-27)
DX: F10.230 Alcohol dependence with withdrawal, uncomplicated (principal); F14.20 Cocaine dependence, uncomplicated; F17.210 Nicotine dependence, cigarettes, uncomplicated; F41.9 Anxiety disorder, unspecified; F32.A Depression, unspecified; Z86.11 Personal history of tuberculosis; Z59.01 Sheltered homelessness; Z56.0 Unemployment, unspecified
CPT/HCPCS: 36415; 80053; 85027; 86780; C9803; U0003; U0005

== ENCOUNTER 2021-05-02 17:33 | Inpatient (IN) | payer OTHER ==
[2021-05-02] MEDS ORDERED: LOPERAMIDE HCL 2 MG CAPSULE PO PRN (17:38)
[2021-05-02] MEDS ORDERED: IBUPROFEN 400 MG TABLET (FP) PO PRN (17:38)
[2021-05-02] MEDS ORDERED: MAGNESIUM HYDROX 2400MG/30ML ORAL SUSPENSION 30 ML CUP PO PRN (17:38)
[2021-05-02] MEDS ORDERED: MENTHOL/PHENOL 1 EACH UD MM PRN (17:38)
[2021-05-02] MEDS ORDERED: MAGNESIUM CITRATE 300 ML BOTTLE PO PRN (17:38)
[2021-05-02] MEDS: MELATONIN 5 MG TABLETS PO SCH (21:37)
[2021-05-02] MEDS: THIAMINE HCL 100 MG TABLET (FP) PO SCH (21:37)
[2021-05-03] MEDS: MAG HYDROX/AL HYDROX/SIMETH 30 ML UNIT-DOSE CUP PO PRN (01:49)
[2021-05-03] MEDS: PRENATAL VITAMINS W/ FOLIC ACID TABLET (FP) PO SCH (09:13)
[2021-05-03] MEDS: THIAMINE HCL 100 MG TABLET (FP) PO SCH (21:28)
[2021-05-03] MEDS: MELATONIN 5 MG TABLETS PO SCH (21:28)
[2021-05-04] MEDS: PRENATAL VITAMINS W/ FOLIC ACID TABLET (FP) PO SCH (10:08)
[2021-05-04] MEDS: TOLNAFTATE 1% CREAM 15 GM TUBE TP SCH ×2 (14:18→21:43)
[2021-05-04] MEDS: MELATONIN 5 MG TABLETS PO SCH (21:43)
[2021-05-04] MEDS: THIAMINE HCL 100 MG TABLET (FP) PO SCH (21:43)
[2021-05-04] MEDS: ACETAMINOPHEN 325 MG TABLET (FP) PO PRN (21:44)
[2021-05-05] MEDS: MAG HYDROX/AL HYDROX/SIMETH 30 ML UNIT-DOSE CUP PO PRN (02:59)
[2021-05-05] MEDS ORDERED: PANTOPRAZOLE 40 MG TABLET ONE (03:08)
[2021-05-05] MEDS: PANTOPRAZOLE 40 MG TABLET PO SCH (06:34)
[2021-05-05] MEDS: PRENATAL VITAMINS W/ FOLIC ACID TABLET (FP) PO SCH (10:40)
[2021-05-05] MEDS: TOLNAFTATE 1% CREAM 15 GM TUBE TP SCH ×2 (10:40→21:19)
[2021-05-05] MEDS: MELATONIN 5 MG TABLETS PO SCH (21:18)
[2021-05-05] MEDS: THIAMINE HCL 100 MG TABLET (FP) PO SCH (21:18)
[2021-05-05] MEDS: NICOTINE 10 MG CARTRIDGE (INHALER) IH PRN (21:24)
[2021-05-06] MEDS: NICOTINE 10 MG CARTRIDGE (INHALER) IH PRN ×2 (06:43→21:16)
[2021-05-06] MEDS: PANTOPRAZOLE 40 MG TABLET PO SCH (06:43)
[2021-05-06] MEDS: PRENATAL VITAMINS W/ FOLIC ACID TABLET (FP) PO SCH (10:14)
[2021-05-06] MEDS: TOLNAFTATE 1% CREAM 15 GM TUBE TP SCH ×2 (10:15→21:16)
[2021-05-06] MEDS ORDERED: COLLOIDAL OATMEAL 1 BAR EACH TP PRN (10:51)
[2021-05-06] MEDS: THIAMINE HCL 100 MG TABLET (FP) PO SCH (21:16)
[2021-05-06] MEDS: MELATONIN 5 MG TABLETS PO SCH (21:16)
[2021-05-07] MEDS: PANTOPRAZOLE 40 MG TABLET PO SCH (06:15)
[2021-05-07] MEDS: PRENATAL VITAMINS W/ FOLIC ACID TABLET (FP) PO SCH (10:20)
[2021-05-07] MEDS: TOLNAFTATE 1% CREAM 15 GM TUBE TP SCH ×2 (10:20→21:02)
[2021-05-07] MEDS: MINERAL OIL/PETROLAT/WATER TOPICAL CREAM 113 GM JAR TP PRN (10:24)
[2021-05-07] MEDS: NICOTINE 10 MG CARTRIDGE (INHALER) IH PRN ×2 (14:35→21:02)
[2021-05-07] MEDS: MELATONIN 5 MG TABLETS PO SCH (21:02)
[2021-05-07] MEDS: THIAMINE HCL 100 MG TABLET (FP) PO SCH (21:02)
[2021-05-08] MEDS: PANTOPRAZOLE 40 MG TABLET PO SCH (06:27)
[2021-05-08] MEDS: MINERAL OIL/PETROLAT/WATER TOPICAL CREAM 113 GM JAR TP PRN ×2 (09:53→21:30)
[2021-05-08] MEDS: PRENATAL VITAMINS W/ FOLIC ACID TABLET (FP) PO SCH (09:53)
[2021-05-08] MEDS: TOLNAFTATE 1% CREAM 15 GM TUBE TP SCH ×2 (09:54→21:31)
[2021-05-08] MEDS: NICOTINE 10 MG CARTRIDGE (INHALER) IH PRN (15:14)
[2021-05-08] MEDS: THIAMINE HCL 100 MG TABLET (FP) PO SCH (21:30)
[2021-05-08] MEDS: MELATONIN 5 MG TABLETS PO SCH (21:30)
[2021-05-09] MEDS: PANTOPRAZOLE 40 MG TABLET PO SCH (06:26)
[2021-05-09] MEDS: PRENATAL VITAMINS W/ FOLIC ACID TABLET (FP) PO SCH (10:17)
[2021-05-09] MEDS: MINERAL OIL/PETROLAT/WATER TOPICAL CREAM 113 GM JAR TP PRN (10:17)
[2021-05-09] MEDS: TOLNAFTATE 1% CREAM 15 GM TUBE TP SCH ×2 (10:19→21:01)
[2021-05-09] MEDS: NICOTINE 10 MG CARTRIDGE (INHALER) IH PRN (10:20)
[2021-05-09] MEDS: MELATONIN 5 MG TABLETS PO SCH (21:01)
[2021-05-09] MEDS: THIAMINE HCL 100 MG TABLET (FP) PO SCH (21:01)
[2021-05-09] MEDS: ACETAMINOPHEN 325 MG TABLET (FP) PO PRN (23:06)
[2021-05-10] MEDS: PANTOPRAZOLE 40 MG TABLET PO SCH (06:34)
[2021-05-10] MEDS: NICOTINE 10 MG CARTRIDGE (INHALER) IH PRN ×2 (09:44→21:36)
[2021-05-10] MEDS: PRENATAL VITAMINS W/ FOLIC ACID TABLET (FP) PO SCH (09:45)
[2021-05-10] MEDS: TOLNAFTATE 1% CREAM 15 GM TUBE TP SCH ×2 (09:45→21:37)
[2021-05-10] MEDS: MELATONIN 5 MG TABLETS PO SCH (21:36)
[2021-05-10] MEDS: THIAMINE HCL 100 MG TABLET (FP) PO SCH (21:36)
[2021-05-11] MEDS: PANTOPRAZOLE 40 MG TABLET PO SCH (06:21)
[2021-05-11] MEDS: TOLNAFTATE 1% CREAM 15 GM TUBE TP SCH ×2 (10:20→21:01)
[2021-05-11] MEDS: PRENATAL VITAMINS W/ FOLIC ACID TABLET (FP) PO SCH (10:20)
[2021-05-11] MEDS: MELATONIN 5 MG TABLETS PO SCH (21:00)
[2021-05-11] MEDS: NICOTINE 10 MG CARTRIDGE (INHALER) IH PRN (21:00)
[2021-05-11] MEDS: THIAMINE HCL 100 MG TABLET (FP) PO SCH (21:00)
[2021-05-12] MEDS: PANTOPRAZOLE 40 MG TABLET PO SCH (06:32)
[2021-05-12] MEDS: NICOTINE 10 MG CARTRIDGE (INHALER) IH PRN ×2 (09:32→21:29)
[2021-05-12] MEDS: PRENATAL VITAMINS W/ FOLIC ACID TABLET (FP) PO SCH (09:33)
[2021-05-12] MEDS: TOLNAFTATE 1% CREAM 15 GM TUBE TP SCH ×2 (09:33→21:29)
[2021-05-12] MEDS: ACETAMINOPHEN 325 MG TABLET (FP) PO PRN (20:49)
[2021-05-12] MEDS: THIAMINE HCL 100 MG TABLET (FP) PO SCH (21:28)
[2021-05-12] MEDS: MELATONIN 5 MG TABLETS PO SCH (21:28)
[2021-05-13] MEDS: PANTOPRAZOLE 40 MG TABLET PO SCH (06:11)
[2021-05-13 06:31] VITALS: BP 123/85; PULSE 86; TEMP 98.1
[2021-05-13] MEDS: TOLNAFTATE 1% CREAM 15 GM TUBE TP SCH (09:41)
[2021-05-13] MEDS: PRENATAL VITAMINS W/ FOLIC ACID TABLET (FP) PO SCH (09:41)
== END 2021-05-13 09:43 | disposition home or self-care (01) | DRG 772 ==
LOC: YASAS 17:33 → Y3W 17:34
PROVIDERS: ADMIT Allergy & Immunology; ATTEND Allergy & Immunology
PROC: HZ42ZZZ Group Counseling for Substance Abuse Treatment, Cognitive-Behavioral (ICD-10-PCS; principal; 2021-05-02)
DX: F10.230 Alcohol dependence with withdrawal, uncomplicated (principal); F14.20 Cocaine dependence, uncomplicated; F17.210 Nicotine dependence, cigarettes, uncomplicated; K21.9 Gastro-esophageal reflux disease without esophagitis; B35.3 Tinea pedis; R12 Heartburn

== ENCOUNTER 2021-11-26 07:07 | Inpatient (IN) | payer OTHER ==
[2021-11-26 07:44] VITALS: BMI 27.1
[2021-11-26] MEDS ORDERED: IBUPROFEN 400 MG TABLET (FP) PO PRN (09:25)
[2021-11-26] MEDS ORDERED: MAG HYDROX/AL HYDROX/SIMETH 30 ML UNIT-DOSE CUP PO PRN (09:25)
[2021-11-26] MEDS ORDERED: P-EPHED 60MG/TRIPROLIDI 2.5MG TABLET PO PRN (09:25)
[2021-11-26] MEDS ORDERED: LOPERAMIDE HCL 2 MG CAPSULE PO PRN (09:25)
[2021-11-26] MEDS ORDERED: MAGNESIUM HYDROX 2400MG/30ML ORAL SUSPENSION 30 ML CUP PO PRN (09:25)
[2021-11-26] MEDS ORDERED: MAGNESIUM CITRATE 300 ML BOTTLE PO PRN (09:25)
[2021-11-26 14:21] LABS: HEMATOCRIT 36.2 % (35.4-49); HEMOGLOBIN 12.1 GM/dL (11.7-16.9); MCH 28.5 pg (25.7-33.7); MCHC 33.4 g/dl (32.0-35.9); MEAN CELL VOLUME 85.3 fl (80-96); PLATELET COUNT 290 10^3/uL (134-434); RBC 4.25 M/mm3 (4.00-5.60); RDW 13.1 % (11.9-15.9); WHITE BLOOD COUNT 6.4 K/mm3 (4.0-10.0)
[2021-11-26 14:27] LABS: ALBUMIN 2.8 g/dl (3.4-5.0); CALCIUM 8.8 mg/dL (8.5-10.1)
[2021-11-26 14:31] LABS: BILIRUBIN,TOTAL 0.3 mg/dL (0.2-1); CREATININE 0.9 mg/dL (0.55-1.3); TOT PROT 6.3 g/dl (6.4-8.2)
[2021-11-26 14:46] LABS: SYPHILIS W/ RPR CONF NON-REACTIVE (NONREACTIVE)
[2021-11-26] MEDS: COLLOIDAL OATMEAL 1 BAR EACH TP PRN (15:36)
[2021-11-26] MEDS: hydrOXYzine PAMOATE 25 MG CAPSULE (FP) PO SCH ×4 (15:37→21:44)
[2021-11-26] MEDS: TOLNAFTATE 1% CREAM 15 GM TUBE TP SCH ×2 (15:38→21:49)
[2021-11-26] MEDS: PRENATAL VITAMINS W/ FOLIC ACID TABLET (FP) PO SCH (15:38)
[2021-11-26] MEDS: NICOTINE 14 MG/24 HOURS TOPICAL PATCH TD SCH (15:39)
[2021-11-26] MEDS: guaiFENesin 200 MG/10 ML 10 ML UNIT-DOSE CUPS PO PRN (18:53)
[2021-11-26] MEDS: MELATONIN 5 MG TABLETS PO SCH (21:43)
[2021-11-26] MEDS: ACETAMINOPHEN 325 MG TABLET (FP) PO PRN (21:45)
[2021-11-26] MEDS: THIAMINE HCL 100 MG TABLET (FP) PO SCH (22:14)
[2021-11-27] MEDS: hydrOXYzine PAMOATE 25 MG CAPSULE (FP) PO SCH ×5 (06:42→22:05)
[2021-11-27] MEDS: ACETAMINOPHEN 325 MG TABLET (FP) PO PRN ×2 (06:44→21:29)
[2021-11-27] MEDS: guaiFENesin 200 MG/10 ML 10 ML UNIT-DOSE CUPS PO PRN (06:46)
[2021-11-27] MEDS: NICOTINE 14 MG/24 HOURS TOPICAL PATCH TD SCH (09:41)
[2021-11-27] MEDS: PRENATAL VITAMINS W/ FOLIC ACID TABLET (FP) PO SCH (09:41)
[2021-11-27] MEDS: PANTOPRAZOLE 20 MG TABLET PO SCH (09:41)
[2021-11-27] MEDS: TOLNAFTATE 1% CREAM 15 GM TUBE TP SCH ×2 (09:42→22:05)
[2021-11-27 11:48] LABS: URINE APPEARANCE CLEAR; URINE BILIRUBIN NEGATIVE (NEGATIVE); URINE COLOR YELLOW; URINE GLUCOSE (UA) NEGATIVE (NEGATIVE); URINE KETONE NEGATIVE (NEGATIVE); URINE LEUK ESTERASE NEGATIVE (NEGATIVE); URINE NITRITE NEGATIVE (NEGATIVE); URINE PROTEIN NEGATIVE (NEGATIVE)
[2021-11-27] MEDS: VITAMINS A AND D TOPICAL OINTMENT 60 GM TUBE TP SCH ×2 (12:08→22:05)
[2021-11-27] MEDS: THIAMINE HCL 100 MG TABLET (FP) PO SCH (21:28)
[2021-11-27] MEDS: MELATONIN 5 MG TABLETS PO SCH (21:28)
[2021-11-28] MEDS: VITAMINS A AND D TOPICAL OINTMENT 60 GM TUBE TP SCH ×4 (00:24→17:10)
[2021-11-28] MEDS: hydrOXYzine PAMOATE 25 MG CAPSULE (FP) PO SCH ×5 (06:19→22:22)
[2021-11-28] MEDS: TOLNAFTATE 1% CREAM 15 GM TUBE TP SCH ×2 (09:28→22:36)
[2021-11-28] MEDS: NICOTINE 14 MG/24 HOURS TOPICAL PATCH TD SCH (09:28)
[2021-11-28] MEDS: PANTOPRAZOLE 20 MG TABLET PO SCH (09:28)
[2021-11-28] MEDS: PRENATAL VITAMINS W/ FOLIC ACID TABLET (FP) PO SCH (09:28)
[2021-11-28] MEDS: SERTRALINE HCL 50 MG TABLET (FP) PO SCH (09:28)
[2021-11-28] MEDS: MELATONIN 5 MG TABLETS PO SCH (22:21)
[2021-11-28] MEDS: ACETAMINOPHEN 325 MG TABLET (FP) PO PRN (22:22)
[2021-11-28] MEDS: THIAMINE HCL 100 MG TABLET (FP) PO SCH (22:22)
[2021-11-29] MEDS: VITAMINS A AND D TOPICAL OINTMENT 60 GM TUBE TP SCH ×4 (03:27→18:13)
[2021-11-29] MEDS: hydrOXYzine PAMOATE 25 MG CAPSULE (FP) PO SCH ×5 (07:44→21:27)
[2021-11-29] MEDS: ACETAMINOPHEN 325 MG TABLET (FP) PO PRN ×2 (08:00→21:25)
[2021-11-29] MEDS: PRENATAL VITAMINS W/ FOLIC ACID TABLET (FP) PO SCH (09:32)
[2021-11-29] MEDS: PANTOPRAZOLE 20 MG TABLET PO SCH (09:33)
[2021-11-29] MEDS: SERTRALINE HCL 50 MG TABLET (FP) PO SCH (09:33)
[2021-11-29] MEDS: NICOTINE 14 MG/24 HOURS TOPICAL PATCH TD SCH (09:35)
[2021-11-29] MEDS: TOLNAFTATE 1% CREAM 15 GM TUBE TP SCH ×2 (09:56→21:53)
[2021-11-29] MEDS: THIAMINE HCL 100 MG TABLET (FP) PO SCH (21:25)
[2021-11-29] MEDS: MELATONIN 5 MG TABLETS PO SCH (21:25)
[2021-11-30] MEDS: VITAMINS A AND D TOPICAL OINTMENT 60 GM TUBE TP SCH ×5 (00:53→21:29)
[2021-11-30] MEDS: hydrOXYzine PAMOATE 25 MG CAPSULE (FP) PO SCH ×2 (06:38→09:37)
[2021-11-30] MEDS: ACETAMINOPHEN 325 MG TABLET (FP) PO PRN ×2 (06:38→16:19)
[2021-11-30] MEDS: PANTOPRAZOLE 20 MG TABLET PO SCH (09:35)
[2021-11-30] MEDS: TOLNAFTATE 1% CREAM 15 GM TUBE TP SCH ×2 (09:35→21:26)
[2021-11-30] MEDS: SERTRALINE HCL 50 MG TABLET (FP) PO SCH (09:36)
[2021-11-30] MEDS: PRENATAL VITAMINS W/ FOLIC ACID TABLET (FP) PO SCH (09:36)
[2021-11-30] MEDS: NICOTINE 14 MG/24 HOURS TOPICAL PATCH TD SCH (09:38)
[2021-11-30] MEDS ORDERED: PANTOPRAZOLE 20 MG TABLET PO SCH (11:00)
[2021-11-30] MEDS: MELATONIN 5 MG TABLETS PO SCH (21:27)
[2021-11-30] MEDS: hydrOXYzine PAMOATE 25 MG CAPSULE (FP) PO PRN (21:27)
[2021-11-30] MEDS: THIAMINE HCL 100 MG TABLET (FP) PO SCH (21:27)
[2021-12-01] MEDS: VITAMINS A AND D TOPICAL OINTMENT 60 GM TUBE TP SCH ×4 (01:35→18:40)
[2021-12-01] MEDS: ACETAMINOPHEN 325 MG TABLET (FP) PO PRN ×3 (07:09→21:34)
[2021-12-01] MEDS: PANTOPRAZOLE 20 MG TABLET PO SCH (07:13)
[2021-12-01] MEDS: SERTRALINE HCL 50 MG TABLET (FP) PO SCH (09:46)
[2021-12-01] MEDS: TOLNAFTATE 1% CREAM 15 GM TUBE TP SCH ×2 (09:46→21:39)
[2021-12-01] MEDS: PRENATAL VITAMINS W/ FOLIC ACID TABLET (FP) PO SCH (09:46)
[2021-12-01] MEDS: hydrOXYzine PAMOATE 25 MG CAPSULE (FP) PO PRN (09:48)
[2021-12-01] MEDS: THIAMINE HCL 100 MG TABLET (FP) PO SCH (21:34)
[2021-12-01] MEDS: MELATONIN 5 MG TABLETS PO SCH (21:34)
[2021-12-02] MEDS: VITAMINS A AND D TOPICAL OINTMENT 60 GM TUBE TP SCH ×5 (01:07→19:45)
[2021-12-02] MEDS: ACETAMINOPHEN 325 MG TABLET (FP) PO PRN ×2 (06:29→21:17)
[2021-12-02] MEDS: PANTOPRAZOLE 20 MG TABLET PO SCH (07:07)
[2021-12-02] MEDS: SERTRALINE HCL 50 MG TABLET (FP) PO SCH (09:39)
[2021-12-02] MEDS: PRENATAL VITAMINS W/ FOLIC ACID TABLET (FP) PO SCH (09:39)
[2021-12-02] MEDS: TOLNAFTATE 1% CREAM 15 GM TUBE TP SCH ×2 (09:40→21:19)
[2021-12-02] MEDS: hydrOXYzine PAMOATE 25 MG CAPSULE (FP) PO PRN ×2 (09:41→21:19)
[2021-12-02] MEDS: THIAMINE HCL 100 MG TABLET (FP) PO SCH (21:17)
[2021-12-02] MEDS: MELATONIN 5 MG TABLETS PO SCH (21:17)
[2021-12-03] MEDS: VITAMINS A AND D TOPICAL OINTMENT 60 GM TUBE TP SCH ×4 (01:34→17:58)
[2021-12-03] MEDS: ACETAMINOPHEN 325 MG TABLET (FP) PO PRN ×2 (06:14→21:11)
[2021-12-03] MEDS: PANTOPRAZOLE 20 MG TABLET PO SCH (07:03)
[2021-12-03] MEDS: PRENATAL VITAMINS W/ FOLIC ACID TABLET (FP) PO SCH (09:32)
[2021-12-03] MEDS: SERTRALINE HCL 50 MG TABLET (FP) PO SCH (09:32)
[2021-12-03] MEDS: TOLNAFTATE 1% CREAM 15 GM TUBE TP SCH ×2 (09:33→21:10)
[2021-12-03] MEDS: MELATONIN 5 MG TABLETS PO SCH (21:10)
[2021-12-03] MEDS: THIAMINE HCL 100 MG TABLET (FP) PO SCH (21:11)
[2021-12-04] MEDS: VITAMINS A AND D TOPICAL OINTMENT 60 GM TUBE TP SCH ×5 (01:14→23:41)
[2021-12-04] MEDS: ACETAMINOPHEN 325 MG TABLET (FP) PO PRN ×2 (06:42→21:24)
[2021-12-04] MEDS: PANTOPRAZOLE 20 MG TABLET PO SCH (07:11)
[2021-12-04] MEDS: SERTRALINE HCL 50 MG TABLET (FP) PO SCH (09:44)
[2021-12-04] MEDS: hydrOXYzine PAMOATE 25 MG CAPSULE (FP) PO PRN ×2 (09:45→21:23)
[2021-12-04] MEDS: TOLNAFTATE 1% CREAM 15 GM TUBE TP SCH ×2 (09:45→21:24)
[2021-12-04] MEDS: PRENATAL VITAMINS W/ FOLIC ACID TABLET (FP) PO SCH (09:45)
[2021-12-04] MEDS: THIAMINE HCL 100 MG TABLET (FP) PO SCH (21:22)
[2021-12-04] MEDS: MELATONIN 5 MG TABLETS PO SCH (21:23)
[2021-12-05] MEDS: PANTOPRAZOLE 20 MG TABLET PO SCH (07:49)
[2021-12-05] MEDS: ACETAMINOPHEN 325 MG TABLET (FP) PO PRN ×2 (07:49→21:29)
[2021-12-05] MEDS: VITAMINS A AND D TOPICAL OINTMENT 60 GM TUBE TP SCH ×4 (07:51→23:17)
[2021-12-05] MEDS: SERTRALINE HCL 50 MG TABLET (FP) PO SCH (09:37)
[2021-12-05] MEDS: PRENATAL VITAMINS W/ FOLIC ACID TABLET (FP) PO SCH (09:37)
[2021-12-05] MEDS: hydrOXYzine PAMOATE 25 MG CAPSULE (FP) PO PRN ×2 (09:38→21:28)
[2021-12-05] MEDS: TOLNAFTATE 1% CREAM 15 GM TUBE TP SCH ×2 (09:39→21:30)
[2021-12-05] MEDS: MELATONIN 5 MG TABLETS PO SCH (21:28)
[2021-12-05] MEDS: THIAMINE HCL 100 MG TABLET (FP) PO SCH (21:28)
[2021-12-06] MEDS: VITAMINS A AND D TOPICAL OINTMENT 60 GM TUBE TP SCH ×3 (06:45→17:07)
[2021-12-06] MEDS: ACETAMINOPHEN 325 MG TABLET (FP) PO PRN ×2 (06:46→21:07)
[2021-12-06] MEDS: PANTOPRAZOLE 20 MG TABLET PO SCH (07:06)
[2021-12-06] MEDS: SERTRALINE HCL 50 MG TABLET (FP) PO SCH (09:29)
[2021-12-06] MEDS: PRENATAL VITAMINS W/ FOLIC ACID TABLET (FP) PO SCH (09:29)
[2021-12-06] MEDS: TOLNAFTATE 1% CREAM 15 GM TUBE TP SCH ×2 (09:30→21:08)
[2021-12-06] MEDS: hydrOXYzine PAMOATE 25 MG CAPSULE (FP) PO PRN (09:31)
[2021-12-06] MEDS: THIAMINE HCL 100 MG TABLET (FP) PO SCH (21:06)
[2021-12-06] MEDS: MELATONIN 5 MG TABLETS PO SCH (21:06)
[2021-12-07] MEDS: VITAMINS A AND D TOPICAL OINTMENT 60 GM TUBE TP SCH ×5 (00:15→23:39)
[2021-12-07] MEDS: PANTOPRAZOLE 20 MG TABLET PO SCH (07:41)
[2021-12-07] MEDS: hydrOXYzine PAMOATE 25 MG CAPSULE (FP) PO PRN (07:41)
[2021-12-07] MEDS: PRENATAL VITAMINS W/ FOLIC ACID TABLET (FP) PO SCH (10:22)
[2021-12-07] MEDS: SERTRALINE HCL 50 MG TABLET (FP) PO SCH (10:22)
[2021-12-07] MEDS: TOLNAFTATE 1% CREAM 15 GM TUBE TP SCH ×2 (10:22→21:16)
[2021-12-07] MEDS: ACETAMINOPHEN 325 MG TABLET (FP) PO PRN ×2 (10:23→21:16)
[2021-12-07] MEDS: MELATONIN 5 MG TABLETS PO SCH (21:15)
[2021-12-07] MEDS: THIAMINE HCL 100 MG TABLET (FP) PO SCH (21:15)
[2021-12-08] MEDS: VITAMINS A AND D TOPICAL OINTMENT 60 GM TUBE TP SCH ×3 (06:20→17:18)
[2021-12-08] MEDS: ACETAMINOPHEN 325 MG TABLET (FP) PO PRN ×2 (06:27→21:16)
[2021-12-08] MEDS: PANTOPRAZOLE 20 MG TABLET PO SCH (07:24)
[2021-12-08] MEDS: PRENATAL VITAMINS W/ FOLIC ACID TABLET (FP) PO SCH (10:10)
[2021-12-08] MEDS: SERTRALINE HCL 50 MG TABLET (FP) PO SCH (10:10)
[2021-12-08] MEDS: TOLNAFTATE 1% CREAM 15 GM TUBE TP SCH ×2 (10:11→21:17)
[2021-12-08] MEDS: THIAMINE HCL 100 MG TABLET (FP) PO SCH (21:16)
[2021-12-08] MEDS: MELATONIN 5 MG TABLETS PO SCH (21:16)
[2021-12-09] MEDS: VITAMINS A AND D TOPICAL OINTMENT 60 GM TUBE TP SCH ×5 (01:06→23:51)
[2021-12-09] MEDS: ACETAMINOPHEN 325 MG TABLET (FP) PO PRN ×2 (06:28→21:20)
[2021-12-09] MEDS: PANTOPRAZOLE 20 MG TABLET PO SCH (07:25)
[2021-12-09] MEDS: TOLNAFTATE 1% CREAM 15 GM TUBE TP SCH ×2 (09:53→21:22)
[2021-12-09] MEDS: SERTRALINE HCL 50 MG TABLET (FP) PO SCH (09:53)
[2021-12-09] MEDS: PRENATAL VITAMINS W/ FOLIC ACID TABLET (FP) PO SCH (09:53)
[2021-12-09] MEDS: hydrOXYzine PAMOATE 25 MG CAPSULE (FP) PO PRN (09:54)
[2021-12-09] MEDS: THIAMINE HCL 100 MG TABLET (FP) PO SCH (21:19)
[2021-12-09] MEDS: MELATONIN 5 MG TABLETS PO SCH (21:20)
[2021-12-10] MEDS: VITAMINS A AND D TOPICAL OINTMENT 60 GM TUBE TP SCH ×3 (06:40→18:04)
[2021-12-10] MEDS: PANTOPRAZOLE 20 MG TABLET PO SCH (07:34)
[2021-12-10] MEDS: ACETAMINOPHEN 325 MG TABLET (FP) PO PRN ×2 (07:34→21:25)
[2021-12-10] MEDS: TOLNAFTATE 1% CREAM 15 GM TUBE TP SCH ×2 (10:09→21:40)
[2021-12-10] MEDS: SERTRALINE HCL 50 MG TABLET (FP) PO SCH (10:09)
[2021-12-10] MEDS: PRENATAL VITAMINS W/ FOLIC ACID TABLET (FP) PO SCH (10:09)
[2021-12-10] MEDS: THIAMINE HCL 100 MG TABLET (FP) PO SCH (21:25)
[2021-12-10] MEDS: MELATONIN 5 MG TABLETS PO SCH (21:25)
[2021-12-11] MEDS: VITAMINS A AND D TOPICAL OINTMENT 60 GM TUBE TP SCH ×4 (00:30→18:50)
[2021-12-11] MEDS: PANTOPRAZOLE 20 MG TABLET PO SCH (08:40)
[2021-12-11] MEDS: ACETAMINOPHEN 325 MG TABLET (FP) PO PRN ×2 (08:40→22:47)
[2021-12-11] MEDS: SERTRALINE HCL 50 MG TABLET (FP) PO SCH (09:49)
[2021-12-11] MEDS: PRENATAL VITAMINS W/ FOLIC ACID TABLET (FP) PO SCH (09:50)
[2021-12-11] MEDS: NICOTINE 10 MG CARTRIDGE (INHALER) IH PRN (09:51)
[2021-12-11] MEDS: hydrOXYzine PAMOATE 25 MG CAPSULE (FP) PO PRN (09:51)
[2021-12-11] MEDS: TOLNAFTATE 1% CREAM 15 GM TUBE TP SCH ×2 (09:52→22:06)
[2021-12-11] MEDS ORDERED: HYDROCORTISONE 1% TOPICAL CREAM 30 GM TUBE TP PRN (11:46)
[2021-12-11] MEDS: SELENIUM SULFIDE 2.5% LOTION 4 OZ. TP SCH (13:57)
[2021-12-11] MEDS: MINERAL OIL/PETROLAT/WATER TOPICAL CREAM 113 GM JAR TP SCH (13:57)
[2021-12-11] MEDS: THIAMINE HCL 100 MG TABLET (FP) PO SCH (22:06)
[2021-12-11] MEDS: MELATONIN 5 MG TABLETS PO SCH (22:06)
[2021-12-12] MEDS: VITAMINS A AND D TOPICAL OINTMENT 60 GM TUBE TP SCH ×4 (01:00→17:53)
[2021-12-12] MEDS: ACETAMINOPHEN 325 MG TABLET (FP) PO PRN ×2 (06:33→21:10)
[2021-12-12] MEDS: PANTOPRAZOLE 20 MG TABLET PO SCH (07:07)
[2021-12-12] MEDS: PRENATAL VITAMINS W/ FOLIC ACID TABLET (FP) PO SCH (09:56)
[2021-12-12] MEDS: SERTRALINE HCL 50 MG TABLET (FP) PO SCH (09:56)
[2021-12-12] MEDS: COLLOIDAL OATMEAL 1 BAR EACH TP PRN (09:57)
[2021-12-12] MEDS: SELENIUM SULFIDE 2.5% LOTION 4 OZ. TP SCH (09:57)
[2021-12-12] MEDS: MINERAL OIL/PETROLAT/WATER TOPICAL CREAM 113 GM JAR TP SCH (09:57)
[2021-12-12] MEDS: TOLNAFTATE 1% CREAM 15 GM TUBE TP SCH ×2 (09:58→21:29)
[2021-12-12] MEDS: MELATONIN 5 MG TABLETS PO SCH (21:10)
[2021-12-12] MEDS: THIAMINE HCL 100 MG TABLET (FP) PO SCH (21:10)
[2021-12-13] MEDS: VITAMINS A AND D TOPICAL OINTMENT 60 GM TUBE TP SCH ×4 (00:31→18:11)
[2021-12-13] MEDS: ACETAMINOPHEN 325 MG TABLET (FP) PO PRN ×2 (06:53→21:17)
[2021-12-13] MEDS: PANTOPRAZOLE 20 MG TABLET PO SCH (07:08)
[2021-12-13] MEDS: SERTRALINE HCL 50 MG TABLET (FP) PO SCH (09:40)
[2021-12-13] MEDS: PRENATAL VITAMINS W/ FOLIC ACID TABLET (FP) PO SCH (09:40)
[2021-12-13] MEDS: hydrOXYzine PAMOATE 25 MG CAPSULE (FP) PO PRN (09:41)
[2021-12-13] MEDS: TOLNAFTATE 1% CREAM 15 GM TUBE TP SCH ×2 (09:42→21:18)
[2021-12-13] MEDS: MINERAL OIL/PETROLAT/WATER TOPICAL CREAM 113 GM JAR TP SCH (09:42)
[2021-12-13] MEDS: SELENIUM SULFIDE 2.5% LOTION 4 OZ. TP SCH (09:42)
[2021-12-13] MEDS: MELATONIN 5 MG TABLETS PO SCH (21:16)
[2021-12-13] MEDS: THIAMINE HCL 100 MG TABLET (FP) PO SCH (21:16)
[2021-12-14] MEDS: VITAMINS A AND D TOPICAL OINTMENT 60 GM TUBE TP SCH ×5 (00:49→23:54)
[2021-12-14] MEDS: PANTOPRAZOLE 20 MG TABLET PO SCH (07:12)
[2021-12-14] MEDS: SELENIUM SULFIDE 2.5% LOTION 4 OZ. TP SCH ×2 (07:59→10:39)
[2021-12-14] MEDS: PRENATAL VITAMINS W/ FOLIC ACID TABLET (FP) PO SCH (10:37)
[2021-12-14] MEDS: SERTRALINE HCL 50 MG TABLET (FP) PO SCH (10:37)
[2021-12-14] MEDS: TOLNAFTATE 1% CREAM 15 GM TUBE TP SCH ×2 (10:38→21:31)
[2021-12-14] MEDS: MINERAL OIL/PETROLAT/WATER TOPICAL CREAM 113 GM JAR TP SCH (10:39)
[2021-12-14] MEDS: hydrOXYzine PAMOATE 25 MG CAPSULE (FP) PO PRN (10:40)
[2021-12-14] MEDS: NICOTINE 10 MG CARTRIDGE (INHALER) IH PRN (10:43)
[2021-12-14] MEDS: ACETAMINOPHEN 325 MG TABLET (FP) PO PRN (21:31)
[2021-12-14] MEDS: THIAMINE HCL 100 MG TABLET (FP) PO SCH (21:31)
[2021-12-14] MEDS: MELATONIN 5 MG TABLETS PO SCH (21:31)
[2021-12-15] MEDS: ACETAMINOPHEN 325 MG TABLET (FP) PO PRN (06:41)
[2021-12-15] MEDS: VITAMINS A AND D TOPICAL OINTMENT 60 GM TUBE TP SCH (06:43)
[2021-12-15 06:44] VITALS: BP 132/86; PULSE 71; TEMP 96.8
[2021-12-15] MEDS: PANTOPRAZOLE 20 MG TABLET PO SCH (07:36)
[2021-12-15] MEDS: SERTRALINE HCL 50 MG TABLET (FP) PO SCH (09:22)
[2021-12-15] MEDS: COLLOIDAL OATMEAL 1 BAR EACH TP PRN (09:22)
[2021-12-15] MEDS: PRENATAL VITAMINS W/ FOLIC ACID TABLET (FP) PO SCH (09:22)
[2021-12-15] MEDS: TOLNAFTATE 1% CREAM 15 GM TUBE TP SCH (09:23)
[2021-12-15] MEDS: SELENIUM SULFIDE 2.5% LOTION 4 OZ. TP SCH (09:23)
[2021-12-15] MEDS: MINERAL OIL/PETROLAT/WATER TOPICAL CREAM 113 GM JAR TP SCH (09:23)
== END 2021-12-15 09:40 | disposition home or self-care (01) | DRG 772 ==
LOC: YASAS 07:07 → Y3E 13:37
PROVIDERS: ADMIT Allergy & Immunology; ATTEND Psychiatry & Neurology Pain Medicine
PROC: HZ42ZZZ Group Counseling for Substance Abuse Treatment, Cognitive-Behavioral (ICD-10-PCS; principal; 2021-11-26)
DX: F10.20 Alcohol dependence, uncomplicated (principal); F14.20 Cocaine dependence, uncomplicated; F17.210 Nicotine dependence, cigarettes, uncomplicated; F19.24 Other psychoactive substance dependence with psychoactive substance-induced mood disorder; F41.9 Anxiety disorder, unspecified; F32.A Depression, unspecified; K21.9 Gastro-esophageal reflux disease without esophagitis; K06.8 Other specified disorders of gingiva and edentulous alveolar ridge; B35.3 Tinea pedis; L30.9 Dermatitis, unspecified; Z86.59 Personal history of other mental and behavioral disorders; Z59.00 Homelessness unspecified
CPT/HCPCS: 36415; 71046-TC-FY; 80053; 81003; 85027; 86780; 86803; 87811; C9803-CS; U0003; U0005

== ENCOUNTER 2022-04-29 20:39 | Inpatient (IN) | payer OTHER ==
[2022-04-29 21:14] VITALS: BMI 26.5
[2022-04-29] MEDS ORDERED: IBUPROFEN 600 MG TABLET (FP) PO PRN (21:41)
[2022-04-29] MEDS ORDERED: LOPERAMIDE HCL 2 MG CAPSULE PO PRN (21:41)
[2022-04-29] MEDS ORDERED: MAG HYDROX/AL HYDROX/SIMETH 30 ML UNIT-DOSE CUP PO PRN (21:41)
[2022-04-29] MEDS ORDERED: BISMUTH SUBSALICYLATE 524 MG/30 ML PO PRN (21:41)
[2022-04-29] MEDS ORDERED: IBUPROFEN 400 MG TABLET (FP) PO PRN (21:41)
[2022-04-29] MEDS ORDERED: NICOTINE 10 MG CARTRIDGE (INHALER) IH PRN (21:41)
[2022-04-29] MEDS ORDERED: ACETAMINOPHEN 325 MG TABLET (FP) PO PRN ×2 (21:41)
[2022-04-29] MEDS ORDERED: NICOTINE POLACRILEX 2 MG GUM BUC PRN (21:41)
[2022-04-29] MEDS ORDERED: BENZOCAINE/MENTHOL (CHLORASEPTIC ) LOZENGE MM PRN (21:41)
[2022-04-29] MEDS ORDERED: MAGNESIUM HYDROX 2400MG/30ML ORAL SUSPENSION 30 ML CUP PO PRN (21:41)
[2022-04-29] MEDS ORDERED: guaiFENesin 200 MG/10 ML 10 ML UNIT-DOSE CUPS PO PRN (21:41)
[2022-04-29] MEDS ORDERED: POLYETHYLENE GLYCOL (HEALTHYLAX) 3350 17 GM PACKET PO PRN (21:41)
[2022-04-29] MEDS ORDERED: ONDANSETRON *ODT* 4 MG TABLET SL PRN (21:41)
[2022-04-29] MEDS ORDERED: DICYCLOMINE HCL 10 MG CAPSULE PO PRN (21:41)
[2022-04-29] MEDS ORDERED: P-EPHED 60MG/TRIPROLIDI 2.5MG TABLET PO PRN (21:41)
[2022-04-29] MEDS ORDERED: hydrOXYzine PAMOATE 25 MG CAPSULE (FP) PO PRN (21:41)
[2022-04-29] MEDS ORDERED: diazePAM 5 MG TABLET PO PRN (21:43)
[2022-04-29] MEDS: MELATONIN 5 MG TABLETS PO SCH (22:42)
[2022-04-29] MEDS: METHOCARBAMOL 500 MG TABLET PO PRN (22:42)
[2022-04-29] MEDS: THIAMINE HCL 100 MG TABLET (FP) PO SCH (22:42)
[2022-04-29] MEDS: TOLNAFTATE 1% CREAM 15 GM TUBE TP SCH (22:44)
[2022-04-30] MEDS: PRENATAL VITAMINS W/ FOLIC ACID TABLET (FP) PO SCH (10:29)
[2022-04-30 11:10] LABS: HEMOGLOBIN 12.5 GM/dL (11.7-16.9); MCH 27.4 pg (25.7-33.7); MCHC 32.1 g/dl (32.0-35.9); MEAN CELL VOLUME 85.5 fl (80-96); MEAN PLT VOLUME 8.1 fl (7.5-11.1); PLATELET COUNT 213 10^3/uL (134-434); RBC 4.56 M/mm3 (4.00-5.60); RDW 13.4 % (11.9-15.9); WHITE BLOOD COUNT 5.4 K/mm3 (4.0-10.0)
[2022-04-30 11:18] LABS: ALBUMIN 2.9 g/dl (3.4-5.0); CALCIUM 8.8 mg/dL (8.5-10.1)
[2022-04-30] MEDS: TOLNAFTATE 1% CREAM 15 GM TUBE TP SCH ×3 (11:21→22:25)
[2022-04-30 11:23] LABS: BILIRUBIN,TOTAL 0.3 mg/dL (0.2-1); TOT PROT 5.6 g/dl (6.4-8.2)
[2022-04-30] MEDS: SERTRALINE HCL 50 MG TABLET (FP) PO SCH (11:23)
[2022-04-30 12:48] VITALS: RESP 18
[2022-04-30] MEDS: THIAMINE HCL 100 MG TABLET (FP) PO SCH (22:22)
[2022-04-30] MEDS: METHOCARBAMOL 500 MG TABLET PO PRN (22:22)
[2022-04-30] MEDS: MELATONIN 5 MG TABLETS PO SCH (22:23)
[2022-05-01 09:47] VITALS: BP 116/66; PULSE 75; TEMP 97.7
[2022-05-01] MEDS: METHOCARBAMOL 500 MG TABLET PO PRN (10:22)
[2022-05-01] MEDS: TOLNAFTATE 1% CREAM 15 GM TUBE TP SCH ×2 (10:22→13:17)
[2022-05-01] MEDS: PRENATAL VITAMINS W/ FOLIC ACID TABLET (FP) PO SCH (10:22)
[2022-05-01] MEDS: SERTRALINE HCL 50 MG TABLET (FP) PO SCH (10:22)
== END 2022-05-01 12:08 | disposition other institution (70) | DRG 774 ==
LOC: YASAS 20:39 → Y6N 22:12
PROVIDERS: ADMIT Allergy & Immunology; ATTEND Surgery
PROC: HZ2ZZZZ Detoxification Services for Substance Abuse Treatment (ICD-10-PCS; principal; 2022-04-29)
DX: F10.230 Alcohol dependence with withdrawal, uncomplicated (principal); F14.20 Cocaine dependence, uncomplicated; F17.210 Nicotine dependence, cigarettes, uncomplicated; F19.280 Other psychoactive substance dependence with psychoactive substance-induced anxiety disorder; F19.282 Other psychoactive substance dependence with psychoactive substance-induced sleep disorder; F32.A Depression, unspecified; K21.9 Gastro-esophageal reflux disease without esophagitis; B35.3 Tinea pedis; Z86.11 Personal history of tuberculosis; Z56.0 Unemployment, unspecified; Z59.00 Homelessness unspecified
CPT/HCPCS: 36415; 80053; 85027; 86780; C9803-CS; U0003; U0005

== ENCOUNTER 2022-05-01 12:17 | Inpatient (IN) | payer OTHER ==
[2022-05-01] MEDS ORDERED: hydrOXYzine PAMOATE 25 MG CAPSULE (FP) PO PRN (13:29)
[2022-05-01] MEDS ORDERED: NICOTINE POLACRILEX 4 MG GUM BUC PRN (13:29)
[2022-05-01] MEDS ORDERED: IBUPROFEN 400 MG TABLET (FP) PO PRN (13:29)
[2022-05-01] MEDS ORDERED: LOPERAMIDE HCL 2 MG CAPSULE PO PRN (13:29)
[2022-05-01] MEDS ORDERED: BENZOCAINE/MENTHOL (CHLORASEPTIC ) LOZENGE MM PRN (13:29)
[2022-05-01] MEDS ORDERED: P-EPHED 60MG/TRIPROLIDI 2.5MG TABLET PO PRN (13:29)
[2022-05-01] MEDS ORDERED: MAGNESIUM HYDROX 2400MG/30ML ORAL SUSPENSION 30 ML CUP PO PRN (13:29)
[2022-05-01] MEDS ORDERED: POLYETHYLENE GLYCOL (HEALTHYLAX) 3350 17 GM PACKET PO PRN (13:29)
[2022-05-01] MEDS ORDERED: NICOTINE 7 MG/24 HOURS TOPICAL PATCH TD PRN (13:29)
[2022-05-01] MEDS: THIAMINE HCL 100 MG TABLET (FP) PO SCH (21:27)
[2022-05-01] MEDS: MELATONIN 5 MG TABLETS PO SCH (21:27)
[2022-05-02] MEDS: PRENATAL VITAMINS W/ FOLIC ACID TABLET (FP) PO SCH (09:36)
[2022-05-02] MEDS: SERTRALINE HCL 50 MG TABLET (FP) PO SCH (09:36)
[2022-05-02 13:13] LABS: HIV INTERPRETATION NEGATIVE (NEGATIVE)
[2022-05-02] MEDS: THIAMINE HCL 100 MG TABLET (FP) PO SCH (21:30)
[2022-05-02] MEDS: MELATONIN 5 MG TABLETS PO SCH (21:30)
[2022-05-02] MEDS: ACETAMINOPHEN 325 MG TABLET (FP) PO PRN (21:30)
[2022-05-02] MEDS: NICOTINE 10 MG CARTRIDGE (INHALER) IH PRN (21:31)
[2022-05-03] MEDS: MAG HYDROX/AL HYDROX/SIMETH 30 ML UNIT-DOSE CUP PO PRN ×2 (00:39→20:07)
[2022-05-03] MEDS: PRENATAL VITAMINS W/ FOLIC ACID TABLET (FP) PO SCH (10:20)
[2022-05-03] MEDS: SERTRALINE HCL 50 MG TABLET (FP) PO SCH (10:20)
[2022-05-03] MEDS ORDERED: COLLOIDAL OATMEAL 1 BAR EACH TP PRN (10:57)
[2022-05-03] MEDS: THIAMINE HCL 100 MG TABLET (FP) PO SCH (21:47)
[2022-05-03] MEDS: MELATONIN 5 MG TABLETS PO SCH (21:47)
[2022-05-04] MEDS: SERTRALINE HCL 50 MG TABLET (FP) PO SCH (09:43)
[2022-05-04] MEDS: PRENATAL VITAMINS W/ FOLIC ACID TABLET (FP) PO SCH (09:43)
[2022-05-04] MEDS: MELATONIN 5 MG TABLETS PO SCH (21:39)
[2022-05-04] MEDS: THIAMINE HCL 100 MG TABLET (FP) PO SCH (21:40)
[2022-05-04] MEDS: ACETAMINOPHEN 325 MG TABLET (FP) PO PRN (21:40)
[2022-05-05] MEDS: PRENATAL VITAMINS W/ FOLIC ACID TABLET (FP) PO SCH (09:47)
[2022-05-05] MEDS: SERTRALINE HCL 50 MG TABLET (FP) PO SCH (09:47)
[2022-05-05] MEDS: THIAMINE HCL 100 MG TABLET (FP) PO SCH (21:24)
[2022-05-05] MEDS: BACLOFEN 10 MG TABLET (FP) PO PRN (21:24)
[2022-05-05] MEDS: MELATONIN 5 MG TABLETS PO SCH (21:24)
[2022-05-06] MEDS: SERTRALINE HCL 50 MG TABLET (FP) PO SCH (09:49)
[2022-05-06] MEDS: PRENATAL VITAMINS W/ FOLIC ACID TABLET (FP) PO SCH (09:49)
[2022-05-06] MEDS: BACLOFEN 10 MG TABLET (FP) PO PRN ×2 (09:50→21:13)
[2022-05-06] MEDS: MELATONIN 5 MG TABLETS PO SCH (21:13)
[2022-05-06] MEDS: THIAMINE HCL 100 MG TABLET (FP) PO SCH (21:13)
[2022-05-07] MEDS: SERTRALINE HCL 50 MG TABLET (FP) PO SCH (09:36)
[2022-05-07] MEDS: PRENATAL VITAMINS W/ FOLIC ACID TABLET (FP) PO SCH (09:36)
[2022-05-07] MEDS: BACLOFEN 10 MG TABLET (FP) PO PRN ×2 (09:37→21:47)
[2022-05-07] MEDS: MELATONIN 5 MG TABLETS PO SCH (21:46)
[2022-05-07] MEDS: THIAMINE HCL 100 MG TABLET (FP) PO SCH (21:46)
[2022-05-08] MEDS: PRENATAL VITAMINS W/ FOLIC ACID TABLET (FP) PO SCH (09:34)
[2022-05-08] MEDS: SERTRALINE HCL 50 MG TABLET (FP) PO SCH (09:35)
[2022-05-08] MEDS: BACLOFEN 10 MG TABLET (FP) PO PRN ×2 (09:37→21:12)
[2022-05-08] MEDS: MELATONIN 5 MG TABLETS PO SCH (21:12)
[2022-05-08] MEDS: THIAMINE HCL 100 MG TABLET (FP) PO SCH (21:12)
[2022-05-09] MEDS: SERTRALINE HCL 50 MG TABLET (FP) PO SCH (09:50)
[2022-05-09] MEDS: PRENATAL VITAMINS W/ FOLIC ACID TABLET (FP) PO SCH (09:50)
[2022-05-09] MEDS: BACLOFEN 10 MG TABLET (FP) PO PRN ×2 (09:51→21:17)
[2022-05-09] MEDS: THIAMINE HCL 100 MG TABLET (FP) PO SCH (21:17)
[2022-05-09] MEDS: MELATONIN 5 MG TABLETS PO SCH (21:17)
[2022-05-10] MEDS: MAG HYDROX/AL HYDROX/SIMETH 30 ML UNIT-DOSE CUP PO PRN ×2 (02:51→20:48)
[2022-05-10] MEDS: SERTRALINE HCL 50 MG TABLET (FP) PO SCH (09:34)
[2022-05-10] MEDS: PRENATAL VITAMINS W/ FOLIC ACID TABLET (FP) PO SCH (09:34)
[2022-05-10] MEDS: BACLOFEN 10 MG TABLET (FP) PO PRN ×2 (09:36→21:04)
[2022-05-10] MEDS: THIAMINE HCL 100 MG TABLET (FP) PO SCH (21:04)
[2022-05-10] MEDS: MELATONIN 5 MG TABLETS PO SCH (21:04)
[2022-05-11] MEDS: PRENATAL VITAMINS W/ FOLIC ACID TABLET (FP) PO SCH (09:56)
[2022-05-11] MEDS: SERTRALINE HCL 50 MG TABLET (FP) PO SCH (09:56)
[2022-05-11] MEDS: BACLOFEN 10 MG TABLET (FP) PO PRN ×2 (09:59→21:23)
[2022-05-11] MEDS: guaiFENesin 200 MG/10 ML 10 ML UNIT-DOSE CUPS PO PRN ×2 (14:19→21:23)
[2022-05-11] MEDS: THIAMINE HCL 100 MG TABLET (FP) PO SCH (21:22)
[2022-05-11] MEDS: MELATONIN 5 MG TABLETS PO SCH (21:22)
[2022-05-12] MEDS: PRENATAL VITAMINS W/ FOLIC ACID TABLET (FP) PO SCH (09:47)
[2022-05-12] MEDS: BACLOFEN 10 MG TABLET (FP) PO PRN ×2 (09:48→21:22)
[2022-05-12] MEDS: SERTRALINE HCL 50 MG TABLET (FP) PO SCH (09:48)
[2022-05-12] MEDS: guaiFENesin 200 MG/10 ML 10 ML UNIT-DOSE CUPS PO PRN ×2 (14:00→21:23)
[2022-05-12] MEDS: MELATONIN 5 MG TABLETS PO SCH (21:22)
[2022-05-12] MEDS: THIAMINE HCL 100 MG TABLET (FP) PO SCH (21:22)
[2022-05-13] MEDS: PRENATAL VITAMINS W/ FOLIC ACID TABLET (FP) PO SCH (10:08)
[2022-05-13] MEDS: BACLOFEN 10 MG TABLET (FP) PO PRN ×2 (10:08→21:20)
[2022-05-13] MEDS: SERTRALINE HCL 50 MG TABLET (FP) PO SCH (10:08)
[2022-05-13] MEDS: guaiFENesin 200 MG/10 ML 10 ML UNIT-DOSE CUPS PO PRN ×2 (10:08→19:14)
[2022-05-13] MEDS: TOLNAFTATE 1% CREAM 15 GM TUBE TP SCH ×2 (12:51→21:20)
[2022-05-13] MEDS: THIAMINE HCL 100 MG TABLET (FP) PO SCH (21:20)
[2022-05-13] MEDS: MELATONIN 5 MG TABLETS PO SCH (21:20)
[2022-05-14] MEDS: PRENATAL VITAMINS W/ FOLIC ACID TABLET (FP) PO SCH (09:49)
[2022-05-14] MEDS: SERTRALINE HCL 50 MG TABLET (FP) PO SCH (09:49)
[2022-05-14] MEDS: TOLNAFTATE 1% CREAM 15 GM TUBE TP SCH ×2 (09:49→21:30)
[2022-05-14] MEDS: BACLOFEN 10 MG TABLET (FP) PO PRN ×2 (09:49→21:28)
[2022-05-14] MEDS: THIAMINE HCL 100 MG TABLET (FP) PO SCH (21:28)
[2022-05-14] MEDS: MELATONIN 5 MG TABLETS PO SCH (21:28)
[2022-05-15] MEDS: TOLNAFTATE 1% CREAM 15 GM TUBE TP SCH ×2 (09:59→21:47)
[2022-05-15] MEDS: BACLOFEN 10 MG TABLET (FP) PO PRN (09:59)
[2022-05-15] MEDS: PRENATAL VITAMINS W/ FOLIC ACID TABLET (FP) PO SCH (09:59)
[2022-05-15] MEDS: SERTRALINE HCL 50 MG TABLET (FP) PO SCH (09:59)
[2022-05-15] MEDS: ACETAMINOPHEN 325 MG TABLET (FP) PO PRN ×2 (10:01→21:46)
[2022-05-15] MEDS: THIAMINE HCL 100 MG TABLET (FP) PO SCH (21:46)
[2022-05-15] MEDS: MELATONIN 5 MG TABLETS PO SCH (21:46)
[2022-05-16] MEDS: PRENATAL VITAMINS W/ FOLIC ACID TABLET (FP) PO SCH (09:33)
[2022-05-16] MEDS: TOLNAFTATE 1% CREAM 15 GM TUBE TP SCH ×2 (09:33→21:41)
[2022-05-16] MEDS: SERTRALINE HCL 50 MG TABLET (FP) PO SCH (09:33)
[2022-05-16] MEDS: ACETAMINOPHEN 325 MG TABLET (FP) PO PRN (09:35)
[2022-05-16] MEDS: BACLOFEN 10 MG TABLET (FP) PO PRN ×2 (09:36→21:41)
[2022-05-16] MEDS: guaiFENesin 200 MG/10 ML 10 ML UNIT-DOSE CUPS PO PRN (09:36)
[2022-05-16] MEDS: NICOTINE 10 MG CARTRIDGE (INHALER) IH PRN (13:27)
[2022-05-16] MEDS: THIAMINE HCL 100 MG TABLET (FP) PO SCH (21:41)
[2022-05-16] MEDS: MELATONIN 5 MG TABLETS PO SCH (21:41)
[2022-05-17] MEDS: SERTRALINE HCL 50 MG TABLET (FP) PO SCH (09:46)
[2022-05-17] MEDS: PRENATAL VITAMINS W/ FOLIC ACID TABLET (FP) PO SCH (09:46)
[2022-05-17] MEDS: TOLNAFTATE 1% CREAM 15 GM TUBE TP SCH ×2 (09:46→22:14)
[2022-05-17] MEDS: BACLOFEN 10 MG TABLET (FP) PO PRN (14:41)
[2022-05-17] MEDS: guaiFENesin 200 MG/10 ML 10 ML UNIT-DOSE CUPS PO PRN ×2 (14:41→22:14)
[2022-05-17] MEDS: NICOTINE 10 MG CARTRIDGE (INHALER) IH PRN (19:15)
[2022-05-17] MEDS: THIAMINE HCL 100 MG TABLET (FP) PO SCH (22:13)
[2022-05-17] MEDS: MELATONIN 5 MG TABLETS PO SCH (22:13)
[2022-05-18] MEDS: PRENATAL VITAMINS W/ FOLIC ACID TABLET (FP) PO SCH (09:44)
[2022-05-18] MEDS: SERTRALINE HCL 50 MG TABLET (FP) PO SCH (09:44)
[2022-05-18] MEDS: BACLOFEN 10 MG TABLET (FP) PO PRN ×2 (09:44→21:22)
[2022-05-18] MEDS: TOLNAFTATE 1% CREAM 15 GM TUBE TP SCH ×2 (09:45→21:30)
[2022-05-18] MEDS: THIAMINE HCL 100 MG TABLET (FP) PO SCH (21:22)
[2022-05-18] MEDS: MELATONIN 5 MG TABLETS PO SCH (21:22)
[2022-05-19] MEDS: TOLNAFTATE 1% CREAM 15 GM TUBE TP SCH ×2 (10:08→22:08)
[2022-05-19] MEDS: PRENATAL VITAMINS W/ FOLIC ACID TABLET (FP) PO SCH (10:08)
[2022-05-19] MEDS: SERTRALINE HCL 50 MG TABLET (FP) PO SCH (10:08)
[2022-05-19] MEDS: NICOTINE 10 MG CARTRIDGE (INHALER) IH PRN (10:11)
[2022-05-19] MEDS: THIAMINE HCL 100 MG TABLET (FP) PO SCH (22:07)
[2022-05-19] MEDS: BACLOFEN 10 MG TABLET (FP) PO PRN (22:07)
[2022-05-19] MEDS: MELATONIN 5 MG TABLETS PO SCH (22:08)
[2022-05-20] MEDS: PRENATAL VITAMINS W/ FOLIC ACID TABLET (FP) PO SCH (09:51)
[2022-05-20] MEDS: SERTRALINE HCL 50 MG TABLET (FP) PO SCH (09:52)
[2022-05-20] MEDS: BACLOFEN 10 MG TABLET (FP) PO PRN ×2 (09:52→21:49)
[2022-05-20] MEDS: TOLNAFTATE 1% CREAM 15 GM TUBE TP SCH ×2 (09:52→21:49)
[2022-05-20] MEDS: THIAMINE HCL 100 MG TABLET (FP) PO SCH (21:49)
[2022-05-20] MEDS: MELATONIN 5 MG TABLETS PO SCH (21:49)
[2022-05-21] MEDS: PRENATAL VITAMINS W/ FOLIC ACID TABLET (FP) PO SCH (09:41)
[2022-05-21] MEDS: TOLNAFTATE 1% CREAM 15 GM TUBE TP SCH ×2 (09:41→21:59)
[2022-05-21] MEDS: SERTRALINE HCL 50 MG TABLET (FP) PO SCH (09:42)
[2022-05-21] MEDS: BACLOFEN 10 MG TABLET (FP) PO PRN ×2 (09:43→22:00)
[2022-05-21] MEDS: guaiFENesin 200 MG/10 ML 10 ML UNIT-DOSE CUPS PO PRN (16:11)
[2022-05-21] MEDS: MELATONIN 5 MG TABLETS PO SCH (21:59)
[2022-05-21] MEDS: THIAMINE HCL 100 MG TABLET (FP) PO SCH (21:59)
[2022-05-22] MEDS: PRENATAL VITAMINS W/ FOLIC ACID TABLET (FP) PO SCH (10:21)
[2022-05-22] MEDS: SERTRALINE HCL 50 MG TABLET (FP) PO SCH (10:21)
[2022-05-22] MEDS: TOLNAFTATE 1% CREAM 15 GM TUBE TP SCH ×2 (10:22→21:33)
[2022-05-22] MEDS: BACLOFEN 10 MG TABLET (FP) PO PRN (10:22)
[2022-05-22] MEDS: guaiFENesin 200 MG/10 ML 10 ML UNIT-DOSE CUPS PO PRN (16:53)
[2022-05-22] MEDS: MELATONIN 5 MG TABLETS PO SCH (21:33)
[2022-05-22] MEDS: THIAMINE HCL 100 MG TABLET (FP) PO SCH (21:33)
[2022-05-23] MEDS: TOLNAFTATE 1% CREAM 15 GM TUBE TP SCH ×2 (09:48→21:42)
[2022-05-23] MEDS: PRENATAL VITAMINS W/ FOLIC ACID TABLET (FP) PO SCH (09:48)
[2022-05-23] MEDS: SERTRALINE HCL 50 MG TABLET (FP) PO SCH (09:48)
[2022-05-23] MEDS: BACLOFEN 10 MG TABLET (FP) PO PRN ×2 (09:49→21:42)
[2022-05-23] MEDS: guaiFENesin 200 MG/10 ML 10 ML UNIT-DOSE CUPS PO PRN (09:49)
[2022-05-23] MEDS: MELATONIN 5 MG TABLETS PO SCH (21:42)
[2022-05-23] MEDS: THIAMINE HCL 100 MG TABLET (FP) PO SCH (21:42)
[2022-05-24] MEDS: TOLNAFTATE 1% CREAM 15 GM TUBE TP SCH ×2 (09:48→21:33)
[2022-05-24] MEDS: PRENATAL VITAMINS W/ FOLIC ACID TABLET (FP) PO SCH (09:48)
[2022-05-24] MEDS: SERTRALINE HCL 50 MG TABLET (FP) PO SCH (09:48)
[2022-05-24] MEDS: guaiFENesin 200 MG/10 ML 10 ML UNIT-DOSE CUPS PO PRN (09:49)
[2022-05-24] MEDS: BACLOFEN 10 MG TABLET (FP) PO PRN ×2 (09:49→21:32)
[2022-05-24] MEDS: THIAMINE HCL 100 MG TABLET (FP) PO SCH (21:32)
[2022-05-24] MEDS: MELATONIN 5 MG TABLETS PO SCH (21:32)
[2022-05-25] MEDS: PRENATAL VITAMINS W/ FOLIC ACID TABLET (FP) PO SCH (09:49)
[2022-05-25] MEDS: SERTRALINE HCL 50 MG TABLET (FP) PO SCH (09:49)
[2022-05-25] MEDS: BACLOFEN 10 MG TABLET (FP) PO PRN ×2 (09:50→21:36)
[2022-05-25] MEDS: TOLNAFTATE 1% CREAM 15 GM TUBE TP SCH ×2 (09:51→21:41)
[2022-05-25] MEDS: MELATONIN 5 MG TABLETS PO SCH (21:34)
[2022-05-25] MEDS: THIAMINE HCL 100 MG TABLET (FP) PO SCH (21:34)
[2022-05-25] MEDS: guaiFENesin 200 MG/10 ML 10 ML UNIT-DOSE CUPS PO PRN (21:36)
[2022-05-26] MEDS: PRENATAL VITAMINS W/ FOLIC ACID TABLET (FP) PO SCH (10:14)
[2022-05-26] MEDS: TOLNAFTATE 1% CREAM 15 GM TUBE TP SCH ×2 (10:14→21:37)
[2022-05-26] MEDS: BACLOFEN 10 MG TABLET (FP) PO PRN ×2 (10:14→21:35)
[2022-05-26] MEDS: SERTRALINE HCL 50 MG TABLET (FP) PO SCH (10:14)
[2022-05-26] MEDS: guaiFENesin 200 MG/10 ML 10 ML UNIT-DOSE CUPS PO PRN (10:15)
[2022-05-26] MEDS: THIAMINE HCL 100 MG TABLET (FP) PO SCH (21:36)
[2022-05-26] MEDS: MELATONIN 5 MG TABLETS PO SCH (21:36)
[2022-05-27 06:53] VITALS: BP 139/82; PULSE 82; RESP 17; TEMP 97.8
[2022-05-27] MEDS: PRENATAL VITAMINS W/ FOLIC ACID TABLET (FP) PO SCH (09:30)
[2022-05-27] MEDS: BACLOFEN 10 MG TABLET (FP) PO PRN (09:30)
[2022-05-27] MEDS: TOLNAFTATE 1% CREAM 15 GM TUBE TP SCH (09:30)
[2022-05-27] MEDS: SERTRALINE HCL 50 MG TABLET (FP) PO SCH (09:30)
[2022-05-27] MEDS: guaiFENesin 200 MG/10 ML 10 ML UNIT-DOSE CUPS PO PRN (09:31)
== END 2022-05-27 09:33 | disposition home or self-care (01) | DRG 772 ==
LOC: YASAS 12:17 → Y3W 12:18
PROVIDERS: ADMIT Allergy & Immunology; ATTEND Psychiatry & Neurology Pain Medicine
PROC: HZ42ZZZ Group Counseling for Substance Abuse Treatment, Cognitive-Behavioral (ICD-10-PCS; principal; 2022-05-01)
DX: F10.20 Alcohol dependence, uncomplicated (principal); F14.20 Cocaine dependence, uncomplicated; F17.210 Nicotine dependence, cigarettes, uncomplicated; F19.24 Other psychoactive substance dependence with psychoactive substance-induced mood disorder; F19.282 Other psychoactive substance dependence with psychoactive substance-induced sleep disorder; F19.280 Other psychoactive substance dependence with psychoactive substance-induced anxiety disorder; F32.A Depression, unspecified; K21.9 Gastro-esophageal reflux disease without esophagitis; J41.0 Simple chronic bronchitis; M54.59 Other low back pain; G89.29 Other chronic pain; B35.3 Tinea pedis; Z56.0 Unemployment, unspecified; Z59.00 Homelessness unspecified
CPT/HCPCS: 36415; 82962; 87389; C9803-CS; J0475; U0003; U0005

== ENCOUNTER 2023-03-15 20:31 | Inpatient (IN) | payer OTHER ==
[2023-03-15 23:41] VITALS: BMI 27.2
[2023-03-16] MEDS ORDERED: NALOXONE HCL 0.4 MG/ML VIAL IM PRN (01:33)
[2023-03-16] MEDS ORDERED: BENZONATATE 200 MG CAPSULE PO PRN (01:33)
[2023-03-16] MEDS ORDERED: NICOTINE POLACRILEX 4 MG GUM BUC PRN (01:33)
[2023-03-16] MEDS ORDERED: MAGNESIUM HYDROX 2400MG/30ML ORAL SUSPENSION 30 ML CUP PO PRN (01:33)
[2023-03-16] MEDS ORDERED: IBUPROFEN 600 MG TABLET (FP) PO PRN (01:33)
[2023-03-16] MEDS ORDERED: NALOXONE HCL (KLOXXADO) 8 MG SPRAY NS PRN (01:33)
[2023-03-16] MEDS ORDERED: LOPERAMIDE HCL 2 MG CAPSULE PO PRN (01:33)
[2023-03-16] MEDS ORDERED: POLYETHYLENE GLYCOL (HEALTHYLAX) 3350 17 GM PACKET PO PRN (01:33)
[2023-03-16] MEDS ORDERED: IBUPROFEN 400 MG TABLET (FP) PO PRN (01:33)
[2023-03-16] MEDS ORDERED: hydrOXYzine PAMOATE 25 MG CAPSULE (FP) PO PRN (01:33)
[2023-03-16] MEDS: BENZOCAINE/MENTHOL (CHLORASEPTIC ) LOZENGE MM PRN ×3 (06:21→21:50)
[2023-03-16 08:56] LABS: HEMOGLOBIN 12.9 GM/dL (11.7-16.9); MCH 28.9 pg (25.7-33.7); MCHC 34.1 g/dl (32.0-35.9); MEAN CELL VOLUME 84.7 fl (80-96); PLATELET COUNT 195 10^3/uL (134-434); RBC 4.48 M/mm3 (4.00-5.60); RDW 13.8 % (11.9-15.9); WHITE BLOOD COUNT 5.9 K/mm3 (4.0-10.0)
[2023-03-16 09:09] LABS: ALBUMIN 2.7 g/dl (3.4-5.0); BLOOD UREA NITROGEN 8.4 mg/dL (7-18)
[2023-03-16 09:12] LABS: CREATININE 0.8 mg/dL (0.55-1.3)
[2023-03-16 09:14] LABS: BILIRUBIN,TOTAL 0.2 mg/dL (0.2-1); TOT PROT 5.6 g/dl (6.4-8.2)
[2023-03-16] MEDS: PRENATAL VITAMINS W/ FOLIC ACID TABLET (FP) PO SCH (09:28)
[2023-03-16] MEDS: NICOTINE 21 MG/24 HOURS TOPICAL PATCH TD SCH (09:28)
[2023-03-16 10:41] LABS: URINE APPEARANCE CLEAR; URINE BILIRUBIN NEGATIVE (NEGATIVE); URINE COLOR DK YELLOW; URINE GLUCOSE (UA) NEGATIVE (NEGATIVE); URINE KETONE TRACE (NEGATIVE); URINE LEUK ESTERASE NEGATIVE (NEGATIVE); URINE NITRITE NEGATIVE (NEGATIVE); URINE PROTEIN NEGATIVE (NEGATIVE); URINE UROBILINOGEN 4.0 E.U/dl mg/dL (0.2-1.0)
[2023-03-16] MEDS: SERTRALINE HCL 50 MG TABLET (FP) PO SCH (10:56)
[2023-03-16] MEDS: CALCIUM 500MG/VIT-D 200 UNITS COMBO TABLET (FP) PO SCH (13:45)
[2023-03-16] MEDS: THIAMINE HCL 100 MG TABLET (FP) PO SCH (21:50)
[2023-03-16] MEDS: MELATONIN 5 MG TABLETS PO SCH (21:50)
[2023-03-17] MEDS: guaiFENesin 600 MG TABLET.ER (FP) PO PRN ×2 (06:29→18:02)
[2023-03-17] MEDS: NICOTINE 21 MG/24 HOURS TOPICAL PATCH TD SCH (09:48)
[2023-03-17] MEDS: CALCIUM 500MG/VIT-D 200 UNITS COMBO TABLET (FP) PO SCH (09:49)
[2023-03-17] MEDS: SERTRALINE HCL 50 MG TABLET (FP) PO SCH (09:49)
[2023-03-17] MEDS: PRENATAL VITAMINS W/ FOLIC ACID TABLET (FP) PO SCH (09:49)
[2023-03-17] MEDS ORDERED: NICOTINE 21 MG/24 HOURS TOPICAL PATCH TD PRN (15:07)
[2023-03-17] MEDS: THIAMINE HCL 100 MG TABLET (FP) PO SCH (21:13)
[2023-03-17] MEDS: MELATONIN 5 MG TABLETS PO SCH (21:13)
[2023-03-18] MEDS: guaiFENesin 600 MG TABLET.ER (FP) PO PRN (06:47)
[2023-03-18] MEDS: ACETAMINOPHEN 325 MG TABLET (FP) PO PRN ×2 (06:48→21:39)
[2023-03-18] MEDS: CALCIUM 500MG/VIT-D 200 UNITS COMBO TABLET (FP) PO SCH (10:44)
[2023-03-18] MEDS: PRENATAL VITAMINS W/ FOLIC ACID TABLET (FP) PO SCH (10:44)
[2023-03-18] MEDS: SERTRALINE HCL 50 MG TABLET (FP) PO SCH (10:44)
[2023-03-18] MEDS: TOLNAFTATE 1% CREAM 15 GM TUBE TP SCH ×2 (13:44→22:10)
[2023-03-18] MEDS: THIAMINE HCL 100 MG TABLET (FP) PO SCH (21:39)
[2023-03-18] MEDS: MELATONIN 5 MG TABLETS PO SCH (21:39)
[2023-03-19] MEDS: MAG HYDROX/AL HYDROX/SIMETH 30 ML UNIT-DOSE CUP PO PRN (02:06)
[2023-03-19] MEDS: ACETAMINOPHEN 325 MG TABLET (FP) PO PRN ×2 (06:33→21:29)
[2023-03-19] MEDS: BENZOCAINE/MENTHOL (CHLORASEPTIC ) LOZENGE MM PRN (06:33)
[2023-03-19] MEDS: PRENATAL VITAMINS W/ FOLIC ACID TABLET (FP) PO SCH (09:40)
[2023-03-19] MEDS: CALCIUM 500MG/VIT-D 200 UNITS COMBO TABLET (FP) PO SCH (09:40)
[2023-03-19] MEDS: SERTRALINE HCL 50 MG TABLET (FP) PO SCH (09:40)
[2023-03-19] MEDS: TOLNAFTATE 1% CREAM 15 GM TUBE TP SCH ×2 (09:41→21:29)
[2023-03-19] MEDS: MELATONIN 5 MG TABLETS PO SCH (21:28)
[2023-03-19] MEDS: THIAMINE HCL 100 MG TABLET (FP) PO SCH (21:28)
[2023-03-20] MEDS: ACETAMINOPHEN 325 MG TABLET (FP) PO PRN ×2 (06:39→21:28)
[2023-03-20] MEDS: PRENATAL VITAMINS W/ FOLIC ACID TABLET (FP) PO SCH (10:12)
[2023-03-20] MEDS: SERTRALINE HCL 50 MG TABLET (FP) PO SCH (10:12)
[2023-03-20] MEDS: CALCIUM 500MG/VIT-D 200 UNITS COMBO TABLET (FP) PO SCH (10:12)
[2023-03-20] MEDS: TOLNAFTATE 1% CREAM 15 GM TUBE TP SCH ×2 (10:12→21:29)
[2023-03-20] MEDS: COLLOIDAL OATMEAL 1 BAR EACH TP PRN (10:13)
[2023-03-20] MEDS: THIAMINE HCL 100 MG TABLET (FP) PO SCH (21:28)
[2023-03-20] MEDS: MELATONIN 5 MG TABLETS PO SCH (21:28)
[2023-03-21] MEDS: ACETAMINOPHEN 325 MG TABLET (FP) PO PRN ×2 (06:26→21:22)
[2023-03-21] MEDS: SERTRALINE HCL 50 MG TABLET (FP) PO SCH (09:44)
[2023-03-21] MEDS: CALCIUM 500MG/VIT-D 200 UNITS COMBO TABLET (FP) PO SCH (09:44)
[2023-03-21] MEDS: TOLNAFTATE 1% CREAM 15 GM TUBE TP SCH ×2 (09:44→21:22)
[2023-03-21] MEDS: PRENATAL VITAMINS W/ FOLIC ACID TABLET (FP) PO SCH (09:44)
[2023-03-21] MEDS: THIAMINE HCL 100 MG TABLET (FP) PO SCH (21:21)
[2023-03-21] MEDS: MELATONIN 5 MG TABLETS PO SCH (21:21)
[2023-03-21] MEDS: BENZOCAINE/MENTHOL (CHLORASEPTIC ) LOZENGE MM PRN (21:46)
[2023-03-22] MEDS: ACETAMINOPHEN 325 MG TABLET (FP) PO PRN ×2 (06:33→21:30)
[2023-03-22] MEDS: BENZOCAINE/MENTHOL (CHLORASEPTIC ) LOZENGE MM PRN ×2 (06:35→21:31)
[2023-03-22] MEDS: CALCIUM 500MG/VIT-D 200 UNITS COMBO TABLET (FP) PO SCH (09:48)
[2023-03-22] MEDS: TOLNAFTATE 1% CREAM 15 GM TUBE TP SCH ×2 (09:49→21:51)
[2023-03-22] MEDS: PRENATAL VITAMINS W/ FOLIC ACID TABLET (FP) PO SCH (09:49)
[2023-03-22] MEDS: SERTRALINE HCL 50 MG TABLET (FP) PO SCH (09:49)
[2023-03-22] MEDS: MAG HYDROX/AL HYDROX/SIMETH 30 ML UNIT-DOSE CUP PO PRN (16:52)
[2023-03-22] MEDS: THIAMINE HCL 100 MG TABLET (FP) PO SCH (21:28)
[2023-03-22] MEDS: MELATONIN 5 MG TABLETS PO SCH (21:28)
[2023-03-23] MEDS: ACETAMINOPHEN 325 MG TABLET (FP) PO PRN ×2 (06:20→21:17)
[2023-03-23] MEDS: BENZOCAINE/MENTHOL (CHLORASEPTIC ) LOZENGE MM PRN (06:22)
[2023-03-23] MEDS: CALCIUM 500MG/VIT-D 200 UNITS COMBO TABLET (FP) PO SCH (09:43)
[2023-03-23] MEDS: SERTRALINE HCL 50 MG TABLET (FP) PO SCH (09:43)
[2023-03-23] MEDS: PRENATAL VITAMINS W/ FOLIC ACID TABLET (FP) PO SCH (09:43)
[2023-03-23] MEDS: TOLNAFTATE 1% CREAM 15 GM TUBE TP SCH ×2 (09:43→21:16)
[2023-03-23] MEDS ORDERED: PANTOPRAZOLE 20 MG TABLET PO PRN (13:21)
[2023-03-23] MEDS: MELATONIN 5 MG TABLETS PO SCH (21:15)
[2023-03-23] MEDS: THIAMINE HCL 100 MG TABLET (FP) PO SCH (21:15)
[2023-03-24] MEDS: MAG HYDROX/AL HYDROX/SIMETH 30 ML UNIT-DOSE CUP PO PRN (02:12)
[2023-03-24] MEDS: ACETAMINOPHEN 325 MG TABLET (FP) PO PRN ×3 (06:26→21:33)
[2023-03-24] MEDS: BENZOCAINE/MENTHOL (CHLORASEPTIC ) LOZENGE MM PRN ×2 (06:28→17:56)
[2023-03-24] MEDS: PRENATAL VITAMINS W/ FOLIC ACID TABLET (FP) PO SCH (09:39)
[2023-03-24] MEDS: PANTOPRAZOLE 20 MG TABLET PO SCH ×2 (09:39→17:53)
[2023-03-24] MEDS: CALCIUM 500MG/VIT-D 200 UNITS COMBO TABLET (FP) PO SCH (09:39)
[2023-03-24] MEDS: TOLNAFTATE 1% CREAM 15 GM TUBE TP SCH ×2 (09:39→21:32)
[2023-03-24] MEDS: SERTRALINE HCL 50 MG TABLET (FP) PO SCH (09:39)
[2023-03-24] MEDS: MELATONIN 5 MG TABLETS PO SCH (21:32)
[2023-03-24] MEDS: THIAMINE HCL 100 MG TABLET (FP) PO SCH (21:32)
[2023-03-25] MEDS: PANTOPRAZOLE 20 MG TABLET PO SCH ×2 (05:49→17:07)
[2023-03-25] MEDS: ACETAMINOPHEN 325 MG TABLET (FP) PO PRN ×2 (05:50→17:07)
[2023-03-25] MEDS: BENZOCAINE/MENTHOL (CHLORASEPTIC ) LOZENGE MM PRN ×3 (05:51→21:01)
[2023-03-25] MEDS: PRENATAL VITAMINS W/ FOLIC ACID TABLET (FP) PO SCH (09:56)
[2023-03-25] MEDS: CALCIUM 500MG/VIT-D 200 UNITS COMBO TABLET (FP) PO SCH (09:56)
[2023-03-25] MEDS: SERTRALINE HCL 50 MG TABLET (FP) PO SCH (09:56)
[2023-03-25] MEDS: TOLNAFTATE 1% CREAM 15 GM TUBE TP SCH ×2 (09:56→20:59)
[2023-03-25] MEDS: MELATONIN 5 MG TABLETS PO SCH (20:59)
[2023-03-25] MEDS: THIAMINE HCL 100 MG TABLET (FP) PO SCH (21:00)
[2023-03-26] MEDS: ACETAMINOPHEN 325 MG TABLET (FP) PO PRN ×2 (06:33→21:27)
[2023-03-26] MEDS: PANTOPRAZOLE 20 MG TABLET PO SCH ×2 (06:33→18:26)
[2023-03-26] MEDS: SERTRALINE HCL 50 MG TABLET (FP) PO SCH (09:26)
[2023-03-26] MEDS: PRENATAL VITAMINS W/ FOLIC ACID TABLET (FP) PO SCH (09:26)
[2023-03-26] MEDS: CALCIUM 500MG/VIT-D 200 UNITS COMBO TABLET (FP) PO SCH (09:26)
[2023-03-26] MEDS: TOLNAFTATE 1% CREAM 15 GM TUBE TP SCH ×2 (09:27→22:23)
[2023-03-26] MEDS: MELATONIN 5 MG TABLETS PO SCH (21:27)
[2023-03-26] MEDS: THIAMINE HCL 100 MG TABLET (FP) PO SCH (21:27)
[2023-03-27] MEDS: ACETAMINOPHEN 325 MG TABLET (FP) PO PRN ×2 (06:42→21:23)
[2023-03-27] MEDS: PANTOPRAZOLE 20 MG TABLET PO SCH ×2 (06:42→18:09)
[2023-03-27] MEDS: SERTRALINE HCL 50 MG TABLET (FP) PO SCH (10:00)
[2023-03-27] MEDS: PRENATAL VITAMINS W/ FOLIC ACID TABLET (FP) PO SCH (10:00)
[2023-03-27] MEDS: TOLNAFTATE 1% CREAM 15 GM TUBE TP SCH ×2 (10:01→22:53)
[2023-03-27] MEDS: CALCIUM 500MG/VIT-D 200 UNITS COMBO TABLET (FP) PO SCH (10:03)
[2023-03-27] MEDS: THIAMINE HCL 100 MG TABLET (FP) PO SCH (21:22)
[2023-03-27] MEDS: MELATONIN 5 MG TABLETS PO SCH (21:22)
[2023-03-28] MEDS: BENZOCAINE/MENTHOL (CHLORASEPTIC ) LOZENGE MM PRN ×2 (06:27→21:26)
[2023-03-28] MEDS: PANTOPRAZOLE 20 MG TABLET PO SCH ×2 (06:27→17:45)
[2023-03-28] MEDS: ACETAMINOPHEN 325 MG TABLET (FP) PO PRN ×2 (06:27→21:25)
[2023-03-28] MEDS: PRENATAL VITAMINS W/ FOLIC ACID TABLET (FP) PO SCH (09:31)
[2023-03-28] MEDS: CALCIUM 500MG/VIT-D 200 UNITS COMBO TABLET (FP) PO SCH (09:32)
[2023-03-28] MEDS: SERTRALINE HCL 50 MG TABLET (FP) PO SCH (09:32)
[2023-03-28] MEDS: TOLNAFTATE 1% CREAM 15 GM TUBE TP SCH ×2 (09:34→21:24)
[2023-03-28 12:47] LABS: HIV INTERPRETATION NEGATIVE (NEGATIVE)
[2023-03-28] MEDS: THIAMINE HCL 100 MG TABLET (FP) PO SCH (21:24)
[2023-03-28] MEDS: MELATONIN 5 MG TABLETS PO SCH (21:24)
[2023-03-29] MEDS: PANTOPRAZOLE 20 MG TABLET PO SCH ×2 (06:15→18:10)
[2023-03-29] MEDS: ACETAMINOPHEN 325 MG TABLET (FP) PO PRN ×2 (06:15→21:12)
[2023-03-29] MEDS: BENZOCAINE/MENTHOL (CHLORASEPTIC ) LOZENGE MM PRN (06:17)
[2023-03-29] MEDS: PRENATAL VITAMINS W/ FOLIC ACID TABLET (FP) PO SCH (09:55)
[2023-03-29] MEDS: CALCIUM 500MG/VIT-D 200 UNITS COMBO TABLET (FP) PO SCH (09:55)
[2023-03-29] MEDS: SERTRALINE HCL 50 MG TABLET (FP) PO SCH (09:55)
[2023-03-29] MEDS: TOLNAFTATE 1% CREAM 15 GM TUBE TP SCH ×2 (09:56→22:54)
[2023-03-29] MEDS: MELATONIN 5 MG TABLETS PO SCH (21:12)
[2023-03-29] MEDS: THIAMINE HCL 100 MG TABLET (FP) PO SCH (21:12)
[2023-03-30] MEDS: ACETAMINOPHEN 325 MG TABLET (FP) PO PRN ×2 (06:32→21:07)
[2023-03-30] MEDS: PANTOPRAZOLE 20 MG TABLET PO SCH ×2 (06:32→17:25)
[2023-03-30] MEDS: BENZOCAINE/MENTHOL (CHLORASEPTIC ) LOZENGE MM PRN (06:33)
[2023-03-30] MEDS: CALCIUM 500MG/VIT-D 200 UNITS COMBO TABLET (FP) PO SCH (09:48)
[2023-03-30] MEDS: SERTRALINE HCL 50 MG TABLET (FP) PO SCH (09:49)
[2023-03-30] MEDS: PRENATAL VITAMINS W/ FOLIC ACID TABLET (FP) PO SCH (09:49)
[2023-03-30] MEDS: TOLNAFTATE 1% CREAM 15 GM TUBE TP SCH ×2 (09:49→21:06)
[2023-03-30] MEDS: THIAMINE HCL 100 MG TABLET (FP) PO SCH (21:06)
[2023-03-30] MEDS: MELATONIN 5 MG TABLETS PO SCH (21:06)
[2023-03-31] MEDS: ACETAMINOPHEN 325 MG TABLET (FP) PO PRN ×2 (06:12→21:10)
[2023-03-31] MEDS: PANTOPRAZOLE 20 MG TABLET PO SCH ×2 (06:12→17:41)
[2023-03-31] MEDS: BENZOCAINE/MENTHOL (CHLORASEPTIC ) LOZENGE MM PRN (06:13)
[2023-03-31] MEDS: CALCIUM 500MG/VIT-D 200 UNITS COMBO TABLET (FP) PO SCH (09:27)
[2023-03-31] MEDS: TOLNAFTATE 1% CREAM 15 GM TUBE TP SCH ×2 (09:27→21:11)
[2023-03-31] MEDS: PRENATAL VITAMINS W/ FOLIC ACID TABLET (FP) PO SCH (09:28)
[2023-03-31] MEDS: SERTRALINE HCL 50 MG TABLET (FP) PO SCH (09:39)
[2023-03-31] MEDS: MELATONIN 5 MG TABLETS PO SCH (21:11)
[2023-03-31] MEDS: THIAMINE HCL 100 MG TABLET (FP) PO SCH (21:11)
[2023-04-01] MEDS: PANTOPRAZOLE 20 MG TABLET PO SCH ×2 (06:42→18:18)
[2023-04-01] MEDS: ACETAMINOPHEN 325 MG TABLET (FP) PO PRN ×2 (06:43→21:12)
[2023-04-01] MEDS: PRENATAL VITAMINS W/ FOLIC ACID TABLET (FP) PO SCH (09:10)
[2023-04-01] MEDS: CALCIUM 500MG/VIT-D 200 UNITS COMBO TABLET (FP) PO SCH (09:10)
[2023-04-01] MEDS: SERTRALINE HCL 50 MG TABLET (FP) PO SCH (09:10)
[2023-04-01] MEDS: TOLNAFTATE 1% CREAM 15 GM TUBE TP SCH ×2 (09:11→21:13)
[2023-04-01] MEDS ORDERED: AMMONIUM LACTATE 12% LOTION 225 GM BOTTLE TP PRN (14:11)
[2023-04-01] MEDS: SALICYLIC ACID (WART REMOVER) 9 ML LIQUID TP SCH (16:22)
[2023-04-01] MEDS: MELATONIN 5 MG TABLETS PO SCH (21:12)
[2023-04-01] MEDS: THIAMINE HCL 100 MG TABLET (FP) PO SCH (21:12)
[2023-04-02] MEDS: PANTOPRAZOLE 20 MG TABLET PO SCH ×2 (06:35→17:44)
[2023-04-02] MEDS: ACETAMINOPHEN 325 MG TABLET (FP) PO PRN ×2 (06:35→21:11)
[2023-04-02] MEDS: BENZOCAINE/MENTHOL (CHLORASEPTIC ) LOZENGE MM PRN (06:36)
[2023-04-02] MEDS: SERTRALINE HCL 50 MG TABLET (FP) PO SCH (09:04)
[2023-04-02] MEDS: CALCIUM 500MG/VIT-D 200 UNITS COMBO TABLET (FP) PO SCH (09:04)
[2023-04-02] MEDS: PRENATAL VITAMINS W/ FOLIC ACID TABLET (FP) PO SCH (09:04)
[2023-04-02] MEDS: TOLNAFTATE 1% CREAM 15 GM TUBE TP SCH ×2 (09:05→21:12)
[2023-04-02] MEDS: SALICYLIC ACID (WART REMOVER) 9 ML LIQUID TP SCH (09:06)
[2023-04-02] MEDS: MELATONIN 5 MG TABLETS PO SCH (21:11)
[2023-04-02] MEDS: THIAMINE HCL 100 MG TABLET (FP) PO SCH (21:11)
[2023-04-03] MEDS: ACETAMINOPHEN 325 MG TABLET (FP) PO PRN ×2 (06:25→21:15)
[2023-04-03] MEDS: PANTOPRAZOLE 20 MG TABLET PO SCH ×2 (06:25→18:07)
[2023-04-03] MEDS: CALCIUM 500MG/VIT-D 200 UNITS COMBO TABLET (FP) PO SCH (09:16)
[2023-04-03] MEDS: PRENATAL VITAMINS W/ FOLIC ACID TABLET (FP) PO SCH (09:16)
[2023-04-03] MEDS: SERTRALINE HCL 50 MG TABLET (FP) PO SCH (09:17)
[2023-04-03] MEDS: SALICYLIC ACID (WART REMOVER) 9 ML LIQUID TP SCH (09:17)
[2023-04-03] MEDS: TOLNAFTATE 1% CREAM 15 GM TUBE TP SCH ×2 (09:18→21:16)
[2023-04-03] MEDS: THIAMINE HCL 100 MG TABLET (FP) PO SCH (21:14)
[2023-04-03] MEDS: MELATONIN 5 MG TABLETS PO SCH (21:14)
[2023-04-04] MEDS: PANTOPRAZOLE 20 MG TABLET PO SCH ×2 (06:14→17:32)
[2023-04-04] MEDS: ACETAMINOPHEN 325 MG TABLET (FP) PO PRN ×2 (06:14→21:24)
[2023-04-04] MEDS: BENZOCAINE/MENTHOL (CHLORASEPTIC ) LOZENGE MM PRN (06:15)
[2023-04-04] MEDS: SALICYLIC ACID (WART REMOVER) 9 ML LIQUID TP SCH (09:19)
[2023-04-04] MEDS: SERTRALINE HCL 50 MG TABLET (FP) PO SCH (09:19)
[2023-04-04] MEDS: PRENATAL VITAMINS W/ FOLIC ACID TABLET (FP) PO SCH (09:19)
[2023-04-04] MEDS: CALCIUM (OYSTER SHELL) 500 MG TABLET (FP) PO SCH (09:19)
[2023-04-04] MEDS: TOLNAFTATE 1% CREAM 15 GM TUBE TP SCH ×2 (09:19→21:24)
[2023-04-04] MEDS: AMOX TR/POT CLAV 500MG/125MG TABLETS (FP) PO SCH (17:32)
[2023-04-04] MEDS: VITAMINS A AND D TOPICAL OINTMENT 60 GM TUBE TP SCH (17:32)
[2023-04-04] MEDS: MELATONIN 5 MG TABLETS PO SCH (21:23)
[2023-04-04] MEDS: THIAMINE HCL 100 MG TABLET (FP) PO SCH (21:23)
[2023-04-05] MEDS: VITAMINS A AND D TOPICAL OINTMENT 60 GM TUBE TP SCH ×4 (00:26→18:06)
[2023-04-05] MEDS: ACETAMINOPHEN 325 MG TABLET (FP) PO PRN ×2 (06:17→21:07)
[2023-04-05] MEDS: PANTOPRAZOLE 20 MG TABLET PO SCH ×2 (06:17→18:03)
[2023-04-05] MEDS: BENZOCAINE/MENTHOL (CHLORASEPTIC ) LOZENGE MM PRN (06:18)
[2023-04-05] MEDS: AMOX TR/POT CLAV 500MG/125MG TABLETS (FP) PO SCH ×2 (07:48→18:03)
[2023-04-05] MEDS: SERTRALINE HCL 50 MG TABLET (FP) PO SCH (09:48)
[2023-04-05] MEDS: CALCIUM (OYSTER SHELL) 500 MG TABLET (FP) PO SCH (09:49)
[2023-04-05] MEDS: PRENATAL VITAMINS W/ FOLIC ACID TABLET (FP) PO SCH (09:49)
[2023-04-05] MEDS: TOLNAFTATE 1% CREAM 15 GM TUBE TP SCH ×2 (09:50→23:31)
[2023-04-05] MEDS: SALICYLIC ACID (WART REMOVER) 9 ML LIQUID TP SCH (09:52)
[2023-04-05] MEDS: MELATONIN 5 MG TABLETS PO SCH (21:06)
[2023-04-05] MEDS: THIAMINE HCL 100 MG TABLET (FP) PO SCH (21:07)
[2023-04-06] MEDS: VITAMINS A AND D TOPICAL OINTMENT 60 GM TUBE TP SCH ×4 (00:30→18:14)
[2023-04-06] MEDS: PANTOPRAZOLE 20 MG TABLET PO SCH ×2 (06:22→18:14)
[2023-04-06] MEDS: ACETAMINOPHEN 325 MG TABLET (FP) PO PRN ×2 (06:23→21:33)
[2023-04-06] MEDS: AMOX TR/POT CLAV 500MG/125MG TABLETS (FP) PO SCH ×2 (07:16→18:14)
[2023-04-06] MEDS: CALCIUM (OYSTER SHELL) 500 MG TABLET (FP) PO SCH (09:51)
[2023-04-06] MEDS: PRENATAL VITAMINS W/ FOLIC ACID TABLET (FP) PO SCH (09:51)
[2023-04-06] MEDS: SERTRALINE HCL 50 MG TABLET (FP) PO SCH (09:51)
[2023-04-06] MEDS: SALICYLIC ACID (WART REMOVER) 9 ML LIQUID TP SCH (09:51)
[2023-04-06] MEDS: TOLNAFTATE 1% CREAM 15 GM TUBE TP SCH ×2 (09:51→21:35)
[2023-04-06] MEDS: MELATONIN 5 MG TABLETS PO SCH (21:33)
[2023-04-06] MEDS: THIAMINE HCL 100 MG TABLET (FP) PO SCH (21:33)
[2023-04-07] MEDS: VITAMINS A AND D TOPICAL OINTMENT 60 GM TUBE TP SCH ×5 (00:30→23:17)
[2023-04-07] MEDS: ACETAMINOPHEN 325 MG TABLET (FP) PO PRN (06:24)
[2023-04-07] MEDS: PANTOPRAZOLE 20 MG TABLET PO SCH ×2 (06:24→17:37)
[2023-04-07] MEDS: BENZOCAINE/MENTHOL (CHLORASEPTIC ) LOZENGE MM PRN (06:26)
[2023-04-07] MEDS: AMOX TR/POT CLAV 500MG/125MG TABLETS (FP) PO SCH ×2 (07:45→17:37)
[2023-04-07] MEDS: TOLNAFTATE 1% CREAM 15 GM TUBE TP SCH ×2 (10:17→21:19)
[2023-04-07] MEDS: PRENATAL VITAMINS W/ FOLIC ACID TABLET (FP) PO SCH (10:18)
[2023-04-07] MEDS: SERTRALINE HCL 50 MG TABLET (FP) PO SCH (10:20)
[2023-04-07] MEDS: SALICYLIC ACID (WART REMOVER) 9 ML LIQUID TP SCH (10:21)
[2023-04-07] MEDS: CALCIUM (OYSTER SHELL) 500 MG TABLET (FP) PO SCH (10:21)
[2023-04-07] MEDS: MELATONIN 5 MG TABLETS PO SCH (21:19)
[2023-04-07] MEDS: THIAMINE HCL 100 MG TABLET (FP) PO SCH (21:19)
[2023-04-08] MEDS: VITAMINS A AND D TOPICAL OINTMENT 60 GM TUBE TP SCH ×3 (06:21→18:21)
[2023-04-08] MEDS: PANTOPRAZOLE 20 MG TABLET PO SCH ×2 (06:21→18:20)
[2023-04-08] MEDS: BENZOCAINE/MENTHOL (CHLORASEPTIC ) LOZENGE MM PRN (06:22)
[2023-04-08] MEDS: AMOX TR/POT CLAV 500MG/125MG TABLETS (FP) PO SCH ×2 (07:42→18:20)
[2023-04-08] MEDS: CALCIUM (OYSTER SHELL) 500 MG TABLET (FP) PO SCH (09:57)
[2023-04-08] MEDS: SERTRALINE HCL 50 MG TABLET (FP) PO SCH (09:57)
[2023-04-08] MEDS: PRENATAL VITAMINS W/ FOLIC ACID TABLET (FP) PO SCH (09:58)
[2023-04-08] MEDS: TOLNAFTATE 1% CREAM 15 GM TUBE TP SCH ×2 (09:58→21:12)
[2023-04-08] MEDS: SALICYLIC ACID (WART REMOVER) 9 ML LIQUID TP SCH (09:59)
[2023-04-08] MEDS: MELATONIN 5 MG TABLETS PO SCH (21:10)
[2023-04-08] MEDS: THIAMINE HCL 100 MG TABLET (FP) PO SCH (21:10)
[2023-04-09] MEDS: VITAMINS A AND D TOPICAL OINTMENT 60 GM TUBE TP SCH ×4 (00:30→17:59)
[2023-04-09] MEDS: PANTOPRAZOLE 20 MG TABLET PO SCH ×2 (06:19→17:58)
[2023-04-09] MEDS: AMOX TR/POT CLAV 500MG/125MG TABLETS (FP) PO SCH ×2 (07:09→17:58)
[2023-04-09] MEDS: CALCIUM (OYSTER SHELL) 500 MG TABLET (FP) PO SCH (10:14)
[2023-04-09] MEDS: PRENATAL VITAMINS W/ FOLIC ACID TABLET (FP) PO SCH (10:14)
[2023-04-09] MEDS: TOLNAFTATE 1% CREAM 15 GM TUBE TP SCH ×2 (10:15→21:06)
[2023-04-09] MEDS: SALICYLIC ACID (WART REMOVER) 9 ML LIQUID TP SCH (10:20)
[2023-04-09] MEDS: SERTRALINE HCL 50 MG TABLET (FP) PO SCH (10:21)
[2023-04-09] MEDS: MELATONIN 5 MG TABLETS PO SCH (21:06)
[2023-04-09] MEDS: THIAMINE HCL 100 MG TABLET (FP) PO SCH (21:06)
[2023-04-10] MEDS: VITAMINS A AND D TOPICAL OINTMENT 60 GM TUBE TP SCH ×4 (00:30→17:23)
[2023-04-10 06:36] VITALS: RESP 18
[2023-04-10] MEDS: PANTOPRAZOLE 20 MG TABLET PO SCH ×2 (06:36→17:23)
[2023-04-10] MEDS: BENZOCAINE/MENTHOL (CHLORASEPTIC ) LOZENGE MM PRN (06:39)
[2023-04-10] MEDS: AMOX TR/POT CLAV 500MG/125MG TABLETS (FP) PO SCH ×2 (07:13→17:23)
[2023-04-10] MEDS: SERTRALINE HCL 50 MG TABLET (FP) PO SCH (09:39)
[2023-04-10] MEDS: PRENATAL VITAMINS W/ FOLIC ACID TABLET (FP) PO SCH (09:39)
[2023-04-10] MEDS: CALCIUM (OYSTER SHELL) 500 MG TABLET (FP) PO SCH (09:39)
[2023-04-10] MEDS: TOLNAFTATE 1% CREAM 15 GM TUBE TP SCH ×2 (09:40→21:25)
[2023-04-10] MEDS: SALICYLIC ACID (WART REMOVER) 9 ML LIQUID TP SCH (09:40)
[2023-04-10] MEDS: THIAMINE HCL 100 MG TABLET (FP) PO SCH (21:25)
[2023-04-10] MEDS: MELATONIN 5 MG TABLETS PO SCH (21:25)
[2023-04-11] MEDS: VITAMINS A AND D TOPICAL OINTMENT 60 GM TUBE TP SCH ×4 (00:52→17:33)
[2023-04-11] MEDS: PANTOPRAZOLE 20 MG TABLET PO SCH ×2 (06:24→17:30)
[2023-04-11] MEDS: AMOX TR/POT CLAV 500MG/125MG TABLETS (FP) PO SCH (07:16)
[2023-04-11 07:24] VITALS: BP 132/77
[2023-04-11] MEDS: PRENATAL VITAMINS W/ FOLIC ACID TABLET (FP) PO SCH (10:27)
[2023-04-11] MEDS: CALCIUM (OYSTER SHELL) 500 MG TABLET (FP) PO SCH (10:28)
[2023-04-11] MEDS: SERTRALINE HCL 50 MG TABLET (FP) PO SCH (10:28)
[2023-04-11] MEDS: TOLNAFTATE 1% CREAM 15 GM TUBE TP SCH ×2 (10:29→21:20)
[2023-04-11] MEDS: SALICYLIC ACID (WART REMOVER) 9 ML LIQUID TP SCH (10:31)
[2023-04-11] MEDS: THIAMINE HCL 100 MG TABLET (FP) PO SCH (21:19)
[2023-04-11] MEDS: MELATONIN 5 MG TABLETS PO SCH (21:19)
[2023-04-11] MEDS: COLLOIDAL OATMEAL 1 BAR EACH TP PRN (22:53)
[2023-04-12] MEDS: VITAMINS A AND D TOPICAL OINTMENT 60 GM TUBE TP SCH ×2 (01:11→07:08)
[2023-04-12] MEDS: PANTOPRAZOLE 20 MG TABLET PO SCH (06:18)
[2023-04-12] MEDS: BENZOCAINE/MENTHOL (CHLORASEPTIC ) LOZENGE MM PRN (06:19)
[2023-04-12 07:03] VITALS: PULSE 81; TEMP 97.1
[2023-04-12] MEDS: CALCIUM (OYSTER SHELL) 500 MG TABLET (FP) PO SCH (09:09)
[2023-04-12] MEDS: SERTRALINE HCL 50 MG TABLET (FP) PO SCH (09:09)
[2023-04-12] MEDS: PRENATAL VITAMINS W/ FOLIC ACID TABLET (FP) PO SCH (09:09)
[2023-04-12] MEDS: SALICYLIC ACID (WART REMOVER) 9 ML LIQUID TP SCH (09:12)
[2023-04-12] MEDS: TOLNAFTATE 1% CREAM 15 GM TUBE TP SCH (09:12)
== END 2023-04-12 09:25 | disposition home or self-care (01) | DRG 772 ==
LOC: YASAS 20:31 → Y3E 03-16 04:01
PROVIDERS: ADMIT Allergy & Immunology; ATTEND Psychiatry & Neurology Pain Medicine
PROC: HZ42ZZZ Group Counseling for Substance Abuse Treatment, Cognitive-Behavioral (ICD-10-PCS; principal; 2023-03-16)
DX: F10.20 Alcohol dependence, uncomplicated (principal); F14.20 Cocaine dependence, uncomplicated; F17.210 Nicotine dependence, cigarettes, uncomplicated; F41.9 Anxiety disorder, unspecified; F32.A Depression, unspecified; F43.10 Post-traumatic stress disorder, unspecified; E83.51 Hypocalcemia; K21.9 Gastro-esophageal reflux disease without esophagitis; J02.9 Acute pharyngitis, unspecified; L84 Corns and callosities; B35.1 Tinea unguium; Z86.59 Personal history of other mental and behavioral disorders; B35.3 Tinea pedis
CPT/HCPCS: 36415; 71046-TC-FY; 80053; 81003; 82947; 83036; 85027; 86780; 86803; 87389; 87635; 87811